=== PATIENT | female | born 1960 | race Caucasian/White ===

== ENCOUNTER 2019-12-10 13:02 | Emergency (ER) | payer MEDICAID, SELFPAY | END 2019-12-10 15:25 | disposition home or self-care (01) | LOC: ER 12-20 06:44 | PROVIDERS: Emergency Provider Family Medicine; Family Provider Nurse Practitioner Family; PCP Orthopaedic Surgery | DX: Z76.89 Persons encountering health services in other specified circumstances (principal) ==

== ENCOUNTER 2019-12-10 13:02 | Emergency (ER) | payer MEDICAID, SELFPAY ==
[2019-12-10 13:04] VITALS: BP 129/91; PULSE 94; RESP 24; TEMP 36.5; O2SAT 98; BMI 40.6
[2019-12-10 13:16] VITALS: BP 126/72; PULSE 99; RESP 24; O2SAT 96
--- NOTE | 2019-12-10 13:18 | PC.NURSE ---
Patient reports that she woke up this morning with shortness of breath. Patient states she coughed and she felt a pop in her back. Patient reports that the SOB got better after the pop. Patient states that she has a history of COPD and wears 3.5 L of O2 at home.
--- NOTE | 2019-12-10 13:57 | ED_ITS ---
Entered by Sue Dyer, acting as scribe for Dec 10, 2019 13:02 HPI - SOB/Dyspnea General: Chief Complaint: Shortness of Breath/Dyspnea Stated Complaint: SOB Time Seen by Provider: 12/10/19 13:55 Source: patient, EMS and RN notes reviewed Mode of arrival: EMS Limitations: no limitations History of Present Illness: HPI Narrative: 59 yo female presents to ED with complaints of shortness of breath. She said she coughed and felt a pop in her rib area. She said it hurts with movement and coughing. This happened earlier today. She denies any fall or injuries. Pain is worse on deep inspiration and coughing. MD elicited complaint: shortness of breath, cough and pain with inspiration Onset (ago): minute(s) (just prior to arrival) Context: recent illness Timing: intermittent Severity: moderate Exacerbating factors: movement and coughing Relieving factors: rest Associated symptoms: Reports abdominal pain and chest pain; Deny fever(s), palpitations, polydipsia or polyuria Treatment prior to arrival: none Related Data: Home oxygen amount: 3 liters (3.5) Review of Systems General: Reports: 10 or more systems reviewed and unremarkable except in HPI and below Const: Denies: fever, chills or body aches Eyes: Reports: blind spots; Denies: change in vision or blurry vision ENMT: Denies: throat pain, enlarged tonsils, painful swallowing, hoarseness, mouth pain or swelling of lips/tongue Card: Reports: chest pain; Denies: palpitations, irregular heart rhythm, edema or swelling of feet/ankles Resp: Denies: shortness of breath, productive cough or non-productive cough GI: Reports: abdominal pain : Denies: flank pain, difficulty urinating, painful urination, urinary frequency, urinary urgency or urinary hesitancy Musc: Denies: neck pain, back pain or extremity swelling Skin/Breast: Denies: rash, itching or redness Neuro: Denies: headache, numbness in extremities or weakness in extremities Endo: Denies: excessive urination, excessive thirst or tired all the time PFS ED PFSH: Social History Smoking and tobacco status: current every day smoker Physical Exam Const: COMMON NORMALS: no apparent distress, average body habitus, oriented x3, no limitations, healthy appearing, alert and well nourished HENMT: COMMON NORMALS: normocephalic, head/scalp atraumatic and moist oral mucous membranes HEAD & SCALP: normocephalic and atraumatic Eye: COMMON NORMALS: PERRL, EOMs intact bilaterally, conjunctivae normal and no scleral icterus CONJUNCTIVA: Yes conjunctivae normal PUPIL: Yes PERRL Neck/C-Spine: COMMON NORMALS: full ROM, supple, no meningeal signs, no JVD and no carotid bruits Chest: COMMONS NORMALS: inspection of chest normal CHEST: Yes localized rib tenderness with anteroposterior compression (on the left) Resp: COMMON NORMALS: normal respiratory effort, no retractions, no use of accessory muscles, clear to auscultation bilaterally and percussion normal AUSCULTATION: clear to auscultation bilaterally and rhonchi PERCUSSION: percussion normal Cardio: COMMON NORMALS: no JVD, regular rate, regular rhythm, S1 normal heart sound, S2 normal heart sound, no gallops, no clicks, no murmurs, no rub and peripheral pulses 2+ throughout RATE: regular rate RHYTHM: regular rhythm HEART SOUNDS: S1 normal and S2 normal PERIPHERAL PULSES: pulses 2+ throughout GI: COMMON NORMALS: normal to inspection, nondistended, normoactive bowel sounds, soft to palpation, non-tender, no hepatosplenomegaly, no masses and no bruits PALPATION: Yes soft and Yes no hepatosplenomegaly : COMMON NORMALS: Yes no CVA tenderness BLADDER/KIDNEY EXAM: Yes no CVA tenderness Back/Pelvis: COMMON NORMALS: no CVA tenderness Extremity: COMMON NORMALS: normal to inspection, full ROM, normal capillary refill, no calf tenderness and no pedal edema Neuro: COMMON NORMALS: oriented x3 SENSORIUM/ORIENTATION: Yes alert MENINGEAL SIGNS: Yes no meningeal signs Skin: COMMON NORMALS: no rashes or lesions noted, no wounds, skin turgor normal, no jaundice, no petechiae and no mottling GENERAL SKIN EXAM: no rashes or lesions noted and turgor normal Course Reevaluation(s): Reevaluation #1: Discussed her x-ray findings with her. She has a left sixth rib fracture. Pain is slightly better following the Toradol shot. We will discharge her home on hydrocodone she says she is taken that before with no allergic reactions. Time: 15:06 Vital Signs: Vital signs: Vital Signs Temperature 97.7 F 12/10/19 13:04 Pulse Rate 99 12/10/19 13:16 Respiratory Rate 24 H 12/10/19 13:16 Blood Pressure 126/72 12/10/19 13:16 Pulse Oximetry 96 12/10/19 13:16 MDM - SOB/Dyspnea MDM Narrative: Medical decision making narrative: Patient with a left sixth rib fracture following a coughing spell. The rib fracture is uncomplicated. She is discharged home with a prescription for hydrocodone. Medical Records: Attestation: I reviewed the patient's medical records. Imaging Data^: Other Xray: Radiologist's impression: [place] [address] XRay Report Signed Patient: Marlene Covington #: [id number] : 1960Acct#:[id number] Age/Sex: 59 / FADM Date: 12/10/19 [facility] Dr: Ordering Provider/Ordering MD: Truong Conte [place], [facility] of Service: 12/10/19 Procedure(s): XR ribs LT mn 3V w CXR1V 15925 Accession Number(s): [id number] Report Number: [id number] WS: [id number] XR ribs LT mn 3V w CXR1V 15057 REASON FOR EXAM: rib pain FINDINGS: A nondisplaced fracture through the angle of the sixth rib. No pneumothorax or pleural effusion. There is no congestion of either lung field. XR/XR ribs LT mn 3V w CXR1V 13305 IMPRESSION: Nondisplaced fracture of the sixth rib at its angle. Dictated By:Stephan Reed DO Signed By:Stephan Reed DOSigned Date/Time:12/10/19 1203 Discharge Plan Discharge Patient Disposition: Home, Self-Care Clinical Impression: Closed rib fracture Qualifiers: Encounter type: initial encounter Rib fracture type: single rib Laterality: left Qualified Code(s): S22.32XA - Fracture of one rib, left side, initial encounter for closed fracture Condition: Stable Prescriptions: New hydrocodone-acetaminophen 5-325 mg tablet 1 tab PO Q8H PRN (Reason: rib fracture) Qty: 30 RF: 0 Continued Wixela Inhub 250-50 mcg/dose blister with device 1 inh INHALATION BID RF: 0 ipratropium-albuterol 0.5 mg-3 mg(2.5 mg base)/3 mL solution for nebulization 3 ml INHALATION QID PRN (Reason: Shortness Of Breath) RF: 0 albuterol sulfate 2.5 mg /3 mL (0.083 %) solution for nebulization 2.5 mg inhalation Q2H PRN (Reason: Shortness Of Breath) RF: 0 prednisone 5 mg tablet 5 - 10 mg PO DAILY RF: 0 cyanocobalamin (vitamin B-12) 1,000 mcg/mL solution 1,000 mcg IM Q30D RF: 0 ibuprofen 200 mg Tablet 800 mg PO Q4H PRN (Reason: Pain) RF: 0 omeprazole 20 mg capsule,delayed release(DR/EC) 20 mg PO DAILY RF: 0 lorazepam 1 mg tablet See Rx Instructions .ROUTE .COMPLEX RF: 0 ProAir HFA 90 mcg/actuation HFA aerosol inhaler 2 puff INHALATION QID PRN (Reason: Shortness Of Breath) RF: 0 Spiriva Respimat 2.5 mcg/actuation mist 2 puff INHALATION DAILY RF: 0 Mucinex 600 mg tablet extended release 12hr 600 mg PO BID PRN (Reason: Congestion) RF: 0 Combivent Respimat 20-100 mcg/actuation mist 1 puff INHALATION QID PRN (Reason: UNKNOWN) RF: 0 Discharge Orders: Discharge Order (Routine); Ordered 12/10/19 Ordered By: Truong Conte Referrals: Raul Clark MD [Primary Care Provider] - Ted Ewing APN [Family Provider] - 7-10 days Patient Instructions: Rib Fracture (ED) Activity Restrictions/Additional Instructions: Return for any new or worsening symptoms. Follow-up with your primary care provider within 1 week. Take the pain medication as needed for pain. Coding Level of Care Code ED Almond Roaster for Chg Fwd Exam Comprehensive The documentation recorded by the Gomez bland Valerie R accurately reflects the service I personally performed and the decisions made by Dg fisher Adegoke I, MD, [facility] Dec 10, 2019 13:02
--- NOTE | 2019-12-10 14:04 | XR_ITS ---
WS: [id number] XR ribs LT mn 3V w CXR1V [id number] REASON FOR EXAM: rib pain FINDINGS: A nondisplaced fracture through the angle of the sixth rib. No pneumothorax or pleural effusion. There is no congestion of either lung field. XR/XR ribs LT mn 3V w CXR1V 29728 IMPRESSION: Nondisplaced fracture of the sixth rib at its angle.
[2019-12-10] MEDS: ketorolac 60 mg/2 mL INJ IM (14:12)
[2019-12-10] MEDS: orphenadrine 30 mg/mL Inj 2 mL 60 MG IM (14:13)
[2019-12-10 15:14] VITALS: BP 139/87; PULSE 79; RESP 18; O2SAT 97
[2019-12-10 15:24] VITALS: BP 137/94; PULSE 89; RESP 20; O2SAT 92
== END 2019-12-10 15:25 | disposition home or self-care (01) ==
PROVIDERS: Emergency Provider Family Medicine; Family Provider Nurse Practitioner Family; PCP Orthopaedic Surgery
DX: S22.32XA Fracture of one rib, left side, initial encounter for closed fracture (principal); F17.200 Nicotine dependence, unspecified, uncomplicated
CPT/HCPCS: 71101; 96372; 99281; 99282; 99283; J1885; J2360

== ENCOUNTER 2019-12-18 18:00 | Inpatient (IN) | payer MEDICAID, SELFPAY ==
[2019-12-18 18:05] VITALS: BP 160/89; PULSE 92; RESP 21; TEMP 36.6; O2SAT 93; BMI 42.7
--- NOTE | 2019-12-18 18:37 | ED_ITS ---
Entered by Valery Cannon, acting as scribe for Truong Conte MD, [facility] [place] Dec 18, 2019 18:00 HPI - SOB/Dyspnea General: Chief Complaint: Shortness of Breath/Dyspnea Stated Complaint: COPD/SOB/WHEEZING Time Seen by Provider: 12/18/19 18:17 Source: patient Mode of arrival: EMS Limitations: no limitations History of Present Illness: HPI Narrative: 59 yo Female presents to ED with complaint of shortness of breath. Pt states that when she gets up her oxygen saturations drop down to 80 even with her oxygen being on high. Pt states that this has been going on for 3 days. MD elicited complaint: shortness of breath Pertinent past history: COPD and pneumonia Onset (ago): day(s) (3) Context: recent illness Timing: progressively worsening Severity: moderate Exacerbating factors: exertion Relieving factors: nothing Known history of: COPD Associated symptoms: Deny abdominal pain, chest pain, fever(s), nausea, palpitations, polydipsia, polyuria or vomiting Treatment prior to arrival: oxygen and bronchodilator Review of Systems General: Reports: 10 or more systems reviewed and unremarkable except in HPI and below Const: Denies: fever, chills or body aches Eyes: Denies: change in vision or blurry vision ENMT: Denies: throat pain, enlarged tonsils, painful swallowing, hoarseness, mouth pain or swelling of lips/tongue Card: Denies: chest pain, palpitations, irregular heart rhythm, edema or swelling of feet/ankles Resp: Reports: shortness of breath; Denies: productive cough or non-productive cough GI: Denies: abdominal pain, nausea or vomiting : Denies: flank pain, difficulty urinating, painful urination, urinary frequency, urinary urgency or urinary hesitancy Musc: Denies: neck pain, back pain or extremity swelling Skin/Breast: Denies: rash, itching or redness Neuro: Denies: headache, numbness in extremities or weakness in extremities Endo: Denies: excessive urination, excessive thirst or tired all the time [facility] ED PFSH: Medical History (Updated 12/18/19 @ 23:35 by Truong Conte MD, [facility] [place]) COPD (chronic obstructive pulmonary disease) Social History Smoking and tobacco status: current every day smoker Physical Exam Const: COMMON NORMALS: no apparent distress, average body habitus, oriented x3, no limitations, healthy appearing, alert and well nourished HENMT: COMMON NORMALS: normocephalic, head/scalp atraumatic and moist oral mucous membranes HEAD & SCALP: normocephalic and atraumatic Eye: COMMON NORMALS: PERRL, EOMs intact bilaterally, conjunctivae normal and no scleral icterus CONJUNCTIVA: Yes conjunctivae normal PUPIL: Yes PERRL Neck/C-Spine: COMMON NORMALS: full ROM, supple, no meningeal signs, no JVD and no carotid bruits Chest: COMMONS NORMALS: inspection of chest normal and palpation of chest normal Resp: COMMON NORMALS: normal respiratory effort, no retractions, no use of accessory muscles and percussion normal; negative for clear to auscultation bilaterally AUSCULTATION: not clear to auscultation bilaterally and wheezes throughout PERCUSSION: percussion normal Cardio: COMMON NORMALS: no JVD, regular rate, regular rhythm, S1 normal heart sound, S2 normal heart sound, no gallops, no clicks, no murmurs, no rub and peripheral pulses 2+ throughout RATE: regular rate RHYTHM: regular rhythm HEART SOUNDS: S1 normal and S2 normal PERIPHERAL PULSES: pulses 2+ throughout GI: COMMON NORMALS: normal to inspection, nondistended, normoactive bowel sounds, soft to palpation, non-tender, no hepatosplenomegaly, no masses and no bruits PALPATION: Yes soft and Yes no hepatosplenomegaly : COMMON NORMALS: Yes no CVA tenderness BLADDER/KIDNEY EXAM: Yes no CVA tenderness Back/Pelvis: COMMON NORMALS: no CVA tenderness Extremity: COMMON NORMALS: normal to inspection, full ROM, normal capillary refill, no calf tenderness and no pedal edema Neuro: COMMON NORMALS: oriented x3 SENSORIUM/ORIENTATION: Yes alert MENINGEAL SIGNS: Yes no meningeal signs Skin: COMMON NORMALS: no rashes or lesions noted, no wounds, skin turgor normal, no jaundice, no petechiae and no mottling GENERAL SKIN EXAM: no rashes or lesions noted and turgor normal Course Consultations: Consultation #1: Dr. Zaldivar, hospitalist. She kindly accepted the patient to her service. Vital Signs: Vital signs: Vital Signs Temperature 97.8 F 12/18/19 18:05 Pulse Rate 87 12/18/19 21:01 Respiratory Rate 18 12/18/19 21:01 Blood Pressure 143/66 12/18/19 21:01 Pulse Oximetry 91 12/18/19 21:01 MDM - SOB/Dyspnea MDM Narrative: Medical decision making narrative: 59-year-old female patient who presents to the emergency department with shortness of breath and desaturation with any activity. Of note, she was recently diagnosed with a rib fracture following a violent coughing spell a few days ago. In the emergency department evaluation showed she was positive for influenza, chest x-ray also shows pneumonia. Because she has COPD and chronic respiratory failure on home oxygen with the added influenza and pneumonia she is admitted to the hospital for further evaluation and management. Medical Records: Attestation: I reviewed the patient's medical records. Lab Data: Attestation: I reviewed the patient's lab results. Labs: Lab Results 12/18/19 12/18/19 12/18/19 Range/Units 19:02 19:02 19:25 WBC 9.3 (4.0-10.0) 10^3/ uL RBC 4.26 (4.1-5.3) 10^6/u L Hgb 12.0 (11.5-15.3) g/dL Hct 39.9 (37.0-47.0) % MCV 93.7 (81-99) fL MCH 28.2 (28.0-34.0) pg MCHC 30.1 (30.0-36.0) g/dL RDW 14.6 (12.1-15.1) % Plt Count 357 (130-400) 10^3/c mm MPV 9.0 (7.4-10.4) fL Neut % (Auto) 87.1 % Lymph % (Auto) 5.2 % Bulloch % (Auto) 6.1 % Eos % (Auto) 0.1 % Baso % (Auto) 0.2 % Neut # (Auto) 8.1 H (1.8-7.7) 10^3/u L Lymph # (Auto) 0.5 L (0.8-4.8) 10^3/u L Bulloch # (Auto) 0.6 (0.2-0.9) 10^3/u L Eos # (Auto) 0.0 (0.0-0.8) 10^3/u L Baso # (Auto) 0.0 (0.0-0.1) 10^3/u L Nucleated RBC % (a uto) 0 % Nucleated RBCs # 0.0 /100WBC Sodium 138 (136-145) mmol/L Potassium 3.9 (3.5-5.1) mmol/L Chloride 93 L (98-107) mmol/L Carbon Dioxide 31 H (22-29) mmol/L Anion Gap 17.9 (5-19) BUN 8 (6-20) mg/dL Creatinine 0.7 (0.5-0.9) mg/dL GFR Calculation 85.6 L (90-130) mL/min Glucose 121 H (65-115) mg/dL Calcium 9.5 (8.5-10.5) mg/dL Total Bilirubin 0.2 (0.15-1.2) mg/dL AST 30 (0-32) U/L ALT 32 (0-33) U/L Alkaline Phosphata se 88 (35-105) IU/L NT-Pro-B Natriuret Pep 198 H (0-125) pg/mL Total Protein 6.9 (6.6-8.7) g/dL Albumin 4.1 (3.5-5.2) g/dL Globulin 2.8 (1.3-4.6) g/dL Influenza Type A A g Negative (Negative) POC Influenza B Ag Positive H (Negative) Imaging Data^: CXR: Radiologist's impression: [place] [address] XRay Report Signed Patient: Marlene Covington RUngianni #: [id number] : 1960Acct#:[id number] Age/Sex: 59 / FADM Date: 12/18/19 Loc: [facility]/Bed: Attending Dr: Ordering Provider/Ordering MD: Truong Cotne MD, [facility] [place] Date of Service: 12/18/19 Procedure(s): XR chest 2V* [id number] Accession Number(s): [id number] Report Number: [id number] PROCEDURE INFORMATION: Exam: XR Chest, 2 Views Exam date and time: 12/18/2019 7:30 PM Age: 59 years old Clinical indication: Shortness of breath TECHNIQUE: Imaging protocol: XR of the chest Views: 2 views. COMPARISON: CR XR ribs LT mn 3V w CXR1V [id number] 12/10/2019 2:38 PM FINDINGS: Lungs: There is diffuse interstitial prominence compatible with interstitial fibrosis. Nonspecific bibasilar consolidation is present, consistent with atelectasis, edema, or pneumonia. Increasing density medial right lung/right middle lobe is noted compatible with progressive pneumonitis/volume loss. Pleural space: Unremarkable. No pleural effusion. No pneumothorax. Heart/Mediastinum: The heart is enlarged. Bones/joints: Osteopenia and moderate degenerative changes in the spine are noted. XR/XR chest 2V* [id number] IMPRESSION: 1. Nonspecific bibasilar consolidation is present, consistent with atelectasis, edema, or pneumonia. 2. Increasing density medial right lung/right middle lobe is noted compatible with progressive pneumonitis/volume loss. Dictated By:Margarette Latif Signed By:Prisca Latif Date/Time:12/18/192052 DD/ 51 Discharge Plan Discharge Patient Disposition: Admitted As Inpatient Clinical Impression: Influenza B, Pneumonia, Left rib fracture, COPD (chronic obstructive pulmonary disease) Condition: Stable Prescriptions: No Action fluticasone propion-salmeterol [Wixela Inhub] 250-50 mcg/dose blister with device 1 inh INHALATION BID RF: 0 ipratropium-albuterol 0.5 mg-3 mg(2.5 mg base)/3 mL solution for nebulization 3 ml INHALATION QID PRN (Reason: Shortness Of Breath) RF: 0 albuterol sulfate 2.5 mg /3 mL (0.083 %) solution for nebulization 2.5 mg inhalation Q2H PRN (Reason: Shortness Of Breath) RF: 0 prednisone 5 mg tablet 5 - 10 mg PO DAILY RF: 0 cyanocobalamin (vitamin B-12) 1,000 mcg/mL solution 1,000 mcg IM Q30D RF: 0 ibuprofen 200 mg Tablet 800 mg PO Q4H PRN (Reason: Pain) RF: 0 omeprazole 20 mg capsule,delayed release(DR/EC) 20 mg PO DAILY RF: 0 lorazepam 1 mg tablet See Rx Instructions .ROUTE .COMPLEX RF: 0 albuterol sulfate [ProAir HFA] 90 mcg/actuation HFA aerosol inhaler 2 puff INHALATION QID PRN (Reason: Shortness Of Breath) RF: 0 Spiriva Respimat 2.5 mcg/actuation mist 2 puff INHALATION DAILY RF: 0 guaifenesin [Mucinex] 600 mg tablet extended release 12hr 600 mg PO BID PRN (Reason: Congestion) RF: 0 Combivent Respimat 20-100 mcg/actuation mist 1 puff INHALATION QID PRN (Reason: UNKNOWN) RF: 0 hydrocodone-acetaminophen 5-325 mg tablet 1 tab PO Q8H PRN (Reason: rib fracture) Qty: 30 RF: 0 furosemide 20 mg Tablet 20 mg PO DAILY RF: 0 Referrals: Raul Clark MD [Primary Care Provider] - Ted Ewing, COMMUNITY NURSE [Family Provider] - Coding Level of Care Code ED [employer] Team Leader for Chg Fwd Exam Comprehensive The documentation recorded by the Kassandra bland Carmen, accurately reflects the service I personally performed and the decisions made by Dg fisher Adegoke I, MD, [facility] [place] Dec 18, 2019 18:00
--- NOTE | 2019-12-18 18:53 | XRR_ITS ---
PROCEDURE INFORMATION: Exam: XR Chest, 2 Views Exam date and time: 12/18/2019 7:30 PM Age: 59 years old Clinical indication: Shortness of breath TECHNIQUE: Imaging protocol: XR of the chest Views: 2 views. COMPARISON: CR XR ribs LT mn 3V w CXR1V 97053 12/10/2019 2:38 PM FINDINGS: Lungs: There is diffuse interstitial prominence compatible with interstitial fibrosis. Nonspecific bibasilar consolidation is present, consistent with atelectasis, edema, or pneumonia. Increasing density medial right lung/right middle lobe is noted compatible with progressive pneumonitis/volume loss. Pleural space: Unremarkable. No pleural effusion. No pneumothorax. Heart/Mediastinum: The heart is enlarged. Bones/joints: Osteopenia and moderate degenerative changes in the spine are noted. XR/XR chest 2V* [id number] IMPRESSION: 1. Nonspecific bibasilar consolidation is present, consistent with atelectasis, edema, or pneumonia. 2. Increasing density medial right lung/right middle lobe is noted compatible with progressive pneumonitis/volume loss.
[2019-12-18 19:08] LABS: Basophils % 0.2 %; Eosinophils % 0.1 %; Hematocrit 39.9 % (37.0-47.0); Lymphocytes # 0.5 10^3/uL (0.8-4.8); Lymphocytes % 5.2 %; Mean Corpuscular HGB Conc 30.1 g/dL (30.0-36.0); Mean Corpuscular Hemoglobin 28.2 pg (28.0-34.0); Mean Corpuscular Volume 93.7 fL (81-99); Monocytes # 0.6 10^3/uL (0.2-0.9); Monocytes % 6.1 %; Neutrophils # 8.1 10^3/uL (1.8-7.7); Neutrophils % 87.1 %; Nucleated Red Blood Cells % 0 %; Platelet Count 357 10^3/cmm (130-400); Red Blood Count 4.26 10^6/uL (4.1-5.3); Red Cell Distribution Width 14.6 % (12.1-15.1); White Blood Count 9.3 10^3/uL (4.0-10.0)
[2019-12-18 19:33] VITALS: PULSE 94; RESP 18; O2SAT 92
[2019-12-18] MEDS: ipratropium-albuterol 3 mL Neb INHALATION (19:33)
[2019-12-18 19:34] LABS: Alanine Aminotransferase 32 U/L (0-33); Albumin Level 4.1 g/dL (3.5-5.2); Alkaline Phosphatase 88 IU/L (35-105); Anion Gap 17.9 (5-19); Aspartate Amino Transferase 30 U/L (0-32); Blood Urea Nitrogen 8 mg/dL (6-20); Calcium 9.5 mg/dL (8.5-10.5); Carbon Dioxide 31 mmol/L (22-29); Chloride 93 mmol/L (98-107); Globulin 2.8 g/dL (1.3-4.6); Glomerular Filtration Rate 85.6 mL/min (90-130); Glucose 121 mg/dL (65-115); NT Pro B Type Natriuretic Pept 198 pg/mL (0-125); Potassium 3.9 mmol/L (3.5-5.1); Sodium 138 mmol/L (136-145); Total Bilirubin 0.2 mg/dL (0.15-1.2); Total Protein 6.9 g/dL (6.6-8.7)
[2019-12-18 20:21] LABS: Influenza A by IFA Negative (Negative)
[2019-12-18 20:22] LABS: Influenza B by IFA Positive (Negative)
[2019-12-18] MEDS: oseltamivir phosphate 75 mg Capsule PO (20:40)
[2019-12-18 21:01] VITALS: BP 143/66; PULSE 87; RESP 18; O2SAT 91
[2019-12-18] MEDS: cefTRIAXone 1,000 MG in sodium chloride 0.9% (plus) 50 ML 100 MG IV (21:13)
--- NOTE | 2019-12-18 23:18 | PM.HP ---
Providers/Chief Complaint Admitting Physician: Tonya Zaldivar MD Primary Care Provider: Raul Clark MD Chief Complaint: COPD/SOB/WHEEZING History of Present Illness Marlene Covington is a 59 year old female who presented to the emergency room with chief complaint of her oxygen being low. She is not felt well for a week or so. She says that she normally only wears oxygen 3-1/2 L at night but for the last week or so every time she gets up and walks around she has been more acutely short of breath. She has a pulse oximeter at home and reports that her oxygen levels have dropped down into the low 80s just getting up to walk to the bathroom. She is been wearing her oxygen during the day. She saw Martina Jean and was given a shot of steroids, steroid taper as well as some Levaquin. She has been taking that. She actually thinks her cough is not near as much as it normally is but she is also not getting as much up. She had 1 particular episode of coughing last week in which she had acute pain in her chest. She was found to have a left sixth acute rib fracture. She was given some pain medications for that. She reports a dry sore throat, intermittent headaches and dizziness. She has not had any episodes of syncope or falls. She is had a little bit of a runny nose. No nausea, vomiting or diarrhea. Her granddaughter was sick a couple of weeks ago although she is not sure if she had specific flu. Patient has continued to have some chest discomfort related to the rib fracture and just not felt well. She is been more tired. She came into the emergency room because of the persistent need to wear her oxygen [id number]. In the emergency room on room air oxygen saturations were as low as into the mid 80s. She was found to have influenza B positivity as well as evidence of pneumonia on chest x-ray. She received some antibiotics and breathing treatments. She is being admitted for further care. Patient is scared to go home because of the increased difficulty breathing that she has been having with ambulating even short distances. Review of Systems Const: Reports: change in weight (Had about 10 pound weight gain which she attributes to trying to quit smoking); Denies: fever or chills Eyes: Denies: change in vision ENMT: Reports: throat pain, dry mouth and nasal congestion; Denies: oral sores/lesions or tinnitus Card: Reports: chest pain (Related to left-sided rib fracture, only with deep breaths); Denies: palpitations or edema Resp: Reports: shortness of breath, productive cough, non-productive cough and wheezing; Denies: coughing up blood GI: Denies: abdominal pain, nausea, vomiting, diarrhea, constipation or blood in stool : Denies: difficulty urinating or urinary frequency Musc: Reports: other (Always has some degree of lower extremity edema); Denies: joint swelling, redness or joint warmth Skin/Breast: Denies: rash or sores Neuro: Reports: headache; Denies: numbness in extremities or weakness in extremities Psych: Reports: anxiety; Denies: depression Thierno/Lymph: Denies: easy bruising or easy bleeding Medications/Allergies Home Medications Medication Instructions Recorded Confirmed Last Taken Type furosemide 20 mg PO DAILY 12/18/19 12/18/19 12/18/19 History Allergies Allergy/AdvReac Type Severity Reaction Status Date / Time banana Allergy ALGY-Hives Verified 12/10/19 13:04 codeine Allergy ADR-Cramping Verified 12/10/19 13:04 of the Muscles naproxen [From Aleve] Allergy ALGY-Hives Verified 12/10/19 13:04 Additional Medication Information Additional Medication Information: Home Medications Medication Instructions Recorded Confirmed Type Combivent Respimat 1 puff INHALATION QID PRN 12/10/19 12/18/19 History Spiriva Respimat 2 puff INHALATION DAILY 12/10/19 12/18/19 History albuterol sulfate 2.5 mg INHALATION Q2H PRN 12/10/19 12/18/19 History albuterol sulfate [ProAir HFA] 2 puff INHALATION QID PRN 12/10/19 12/18/19 History cyanocobalamin (vitamin B-12) 1,000 mcg IM Q30D 12/10/19 12/18/19 History fluticasone propion-salmeterol 1 inh INHALATION BID 12/10/19 12/18/19 History [Wixela Inhub] guaifenesin [Mucinex] 600 mg PO BID PRN 12/10/19 12/18/19 History ibuprofen 800 mg PO Q4H PRN 12/10/19 12/18/19 History ipratropium-albuterol 3 ml INHALATION QID PRN 12/10/19 12/18/19 History lorazepam See Rx Instructions .ROUTE .COMPLEX 12/10/19 12/18/19 History omeprazole 20 mg PO DAILY 12/10/19 12/18/19 History prednisone 5 - 10 mg PO DAILY 12/10/19 12/18/19 History furosemide 20 mg PO DAILY 12/18/19 12/18/19 History PFSH Acute PFSH: Medical History (Updated 12/19/19 @ 02:53 by Tonya Zaldivar MD) Anxiety COPD (chronic obstructive pulmonary disease) Has oxygen 3.5 L at night and currently on daily steroids also GERD (gastroesophageal reflux disease) Surgical History (Updated 12/18/19 @ 23:54 by Tonya Zaldivar MD) History of History of cholecystectomy History of tubal ligation Family History (Updated 12/19/19 @ 00:14 by Tonya Zaldivar MD) Sister , Age 50 Cancer Breast; rare kind per pt Mother , Age 50 Cancer Kidney Social History (Updated 12/19/19 @ 00:12 by Tonya Zaldivar MD) Smoking and tobacco status: current every day smoker cigarettes Number of cigarettes per day: 6-10 Alcohol intake: never Substance/Drug Use: never Household members: significant other Supplemental PFSH Information: Denies any history of coronary artery disease, hypertension, hyperlipidemia, diabetes, kidney disease Vitals/I&O/Wt Last Vital Signs Temp 97.8 F 12/18/19 18:05 Pulse 87 12/18/19 21:01 Resp 18 12/18/19 21:01 BP 143/66 12/18/19 21:01 Pulse Ox 91 12/18/19 21:01 Weight last 48 hrs Weight 106.141 kg Physical Exam Const: COMMON NORMALS: oriented x3 and alert HENMT: HEAD & SCALP: normocephalic and atraumatic Eye: COMMON NORMALS: PERRL and EOMs intact bilaterally Neck/C-Spine: COMMON NORMALS: supple Resp: EFFORT & INSPECTION: Yes able to speak in complete sentences, Yes pursed lip breathing and No retractions AUSCULTATION: rhonchi left lower and wheezes expiratory wheezes, inspiratory wheezes and throughout Cardio: COMMON NORMALS: regular rate, no gallops, no murmurs and no rub GI: COMMON NORMALS: soft to palpation and non-tender AUSCULTATION: Yes normoactive bowel sounds Extremity: COMMON NORMALS: no calf tenderness GENERAL: Yes edema (2+) Neuro: COMMON NORMALS: moves all extremities and no sensory deficits noted Psych: COMMON NORMALS: cooperative Skin: NARRATIVE SKIN EXAM: chronic stasis changes mild lower extremities. Some bruising related to lab draws lately. Data : 12/18/19 19:02 12/18/19 19:02 Other Labs: Laboratory Tests 12/18/19 12/18/19 19:02 19:25 Total Bilirubin 0.2 AST 30 ALT 32 Alkaline Phosphatase 88 NT-Pro-B Natriuret Pep 198 H Albumin 4.1 Influenza Type A Ag Negative POC Influenza B Ag Positive H CXR: Radiologist's impression: FINDINGS: Lungs: There is diffuse interstitial prominence compatible with interstitial fibrosis. Nonspecific bibasilar consolidation is present, consistent with atelectasis, edema, or pneumonia. Increasing density medial right lung/right middle lobe is noted compatible with progressive pneumonitis/volume loss. Pleural space: Unremarkable. No pleural effusion. No pneumothorax. Heart/Mediastinum: The heart is enlarged. Bones/joints: Osteopenia and moderate degenerative changes in the spine are noted. XR/XR chest 2V* [id number] IMPRESSION: 1. Nonspecific bibasilar consolidation is present, consistent with atelectasis, edema, or pneumonia. 2. Increasing density medial right lung/right middle lobe is noted compatible with progressive pneumonitis/volume loss. A&P Assessment and plan (1) Influenza B: With minimal symptoms, identified in the emergency room Status: Acute Code(s): J10.1 - Influenza due to other identified influenza virus with other respiratory manifestations (2) Pneumonia: Presumptive diagnosis on admission. She has some opacities in the bases right more than left. Not convinced is not atelectasis. Lack of fever, elevation in white count or other findings suggestive of an acute infection would go against this. BNP was only minimally elevated. Status: Acute Qualifiers: Laterality: right Lung location: lower lobe of lung Pneumonia type: due to unspecified organism Qualified Code(s): J18.9 - Pneumonia, unspecified organism Code(s): J18.9 - Pneumonia, unspecified organism (3) Left rib fracture: Subacute, I do think it is probably contributing some due to difficulties taking in deep breaths due to pain. She says that she can feel the fracture on the left when she tries to take in a deep breath. Status: Acute Qualifiers: Encounter type: subsequent encounter Fracture healing: with routine healing Fracture type: closed Rib fracture type: single rib Qualified Code(s): S22.32XD - Fracture of one rib, left side, subsequent encounter for fracture with routine healing Code(s): S22.32XA - Fracture of one rib, left side, initial encounter for closed fracture (4) COPD (chronic obstructive pulmonary disease): Acutely exacerbated related to above Status: Acute Qualifiers: COPD type: COPD with acute exacerbation Qualified Code(s): J44.1 - Chronic obstructive pulmonary disease with (acute) exacerbation Code(s): J44.9 - Chronic obstructive pulmonary disease, unspecified (5) Anxiety: And as needed lorazepam, primarily to help her sleep Status: Acute Code(s): F41.9 - Anxiety disorder, unspecified Additional A&P Information Inpatient admission Check ABG Depending on clinical course may consider CT/CTA imaging of the chest Tamiflu x5 days Rocephin and azithromycin Systemic steroids with increased dose from baseline Breathing treatments including inhaled steroids Incentives spirometer secondary to rib fracture Continue pain medication for rib fractures Encourage ambulation, PT eval and treat Might benefit from referral to pulmonary rehab We will give 1 dose of IV Lasix in the morning, normally on 20 mg of oral Lasix daily Try to decrease Ativan as able Chronically on oral PPI Lovenox for DVT prophylaxis Supportive care otherwise Plans discussed with patient and she was given an opportunity to ask questions Full code Attestations Medical Necessity Statement*: Anticipate stay greater than 2 midnights in patient with COPD chronically on oxygen now with flu B, likely pneumonia and acute left 6th rib fracture impacting respiratory status. Coding Level of Care Code Acute Instrument Setter for [facility] Fwd Diagnoses Influenza B J10.1 Pneumonia J18.9 Laterality: right Lung location: lower lobe of lung Pneumonia type: due to unspecified organism Left rib fracture S22.32XD Encounter type: subsequent encounter Fracture healing: with routine healing Fracture type: closed Rib fracture type: single rib COPD (chronic obstructive pulmonary disease) J44.1 COPD type: COPD with acute exacerbation Anxiety F41.9
[2019-12-18 23:52] VITALS: BP 138/68; PULSE 81; RESP 18; O2SAT 92
[2019-12-19] VITALS (15 sets, daily range): BP systolic 131–169; BP diastolic 75–90; PULSE 10–100; RESP 18–28; TEMP 36.4–37.2; O2SAT 90–99
--- NOTE | 2019-12-19 00:45 | PC.NURSE ---
Pt arrived to room via gurney from ER. Introduction of staff and aidet. Pt assisted to bed with standby assist. Admission and physical assessment done at this time. Pt noted with generalized bruising to upper extremities, audible wheezes bilaterally. Bowel sounds active in all 4 quads. Non-pitting edema noted to BLE. Pt is A/Ox4, ambulatory, states she can't walk to the bathroom even with her oxygen on 3.5L per n/c, wants a BSC. States she's hungry, that she has not eaten all day. Denies hx of diabetes.
[2019-12-19] MEDS: ipratropium-albuterol 3 mL Neb INHALATION ×4 (02:37→22:01)
[2019-12-19] MEDS: FUROsemide 10 mg/mL SDV 2mL 20 MG IVP (05:26)
[2019-12-19] MEDS: pantoprazole DR 40 mg Tablet PO (08:45)
[2019-12-19] MEDS: predniSONE 20 mg Tablet 40 MG PO (08:45)
[2019-12-19] MEDS: azithromycin 250 mg Tablet 500 MG PO (08:45)
[2019-12-19] MEDS: oseltamivir phosphate 75 mg Capsule PO ×2 (08:46→17:58)
--- NOTE | 2019-12-19 08:54 | CT_ITS ---
WS: [id number] CT CHEST WITHOUT INTRAVENOUS CONTRAST HISTORY: sob, cough, right lower lobe denisty TECHNIQUE: Contiguous 5 mm axial imaging performed on the thorax. Coronal and sagittal reformats are submitted. All CT scans at [facility] use at least one of these dose optimization techniq ues: automated exposure control; mA and/or kV adjustment per patient size (includes targeted exams wh ere dose is matched to clinical indication); or iterative reconstruction. CONTRAST: None DLP: 951.22 mGy.cm COMPARISON: 08/23/2018, 09/13/2016, 12/17/2017 and chest radiograph 12/18/2019 Lungs and central airway: Hyperexpanded lungs with changes of chronic emphysema. Patient has known gregg bcentimeter pulmonary nodules. The largest in the LEFT lower lobe measuring 6 to 7 mm. There are a fe w scattered new ill-defined opacifications in the periphery of the lower lung chavez. Progressive bro nchial thickening and bronchiectasis centered involving the RIGHT upper lobe and bronchus intermedius . Progressive bronchiectasis with bronchial wall thickening. Near complete atelectasis of the RIGHT m iddle lobe. Pleura: Normal. No pleural effusion. Heart and pericardium: Normal size heart. Increased fat along the intra-atrial septum. No pericardial effusion. Mediastinum and darien: There are a few small benign-appearing lymph nodes. Vessels: Mild atherosclerosis aorta. Ulnar artery size is normal. Scattered coronary artery calcifica tions. Chest wall and lower neck: No soft tissue masses. Upper abdomen: Prior cholecystectomy. Osseous structures: Mild increase in thoracic kyphosis. Posterior LEFT seventh rib fracture is age-in determinate but no callus formation. CT/CT chest wo con [id number] IMPRESSION: 1. Near complete atelectasis of the RIGHT middle lobe. Progressed since 2018. 2. Progressive bronchial wall thickening and bronchiectasis involving the prox imal RIGHT upper and RIGHT middle lobes. No mass identified. Bronchoscopy may be necessary to evaluate cause of the atelectasis and progressive RIGHT middle lobe atelectasis. 3. Long-term stability of subcentimeter nodules. 4. New scattered ill-defined opacifications in the lower lung chavez are proba chio postinflammatory.
[2019-12-19] MEDS: budesonide 0.5 mg/2 mL Neb INHALATION ×2 (09:31→22:01)
--- NOTE | 2019-12-19 11:15 | PM.PN ---
Subjective Subjective: Interval history: Patient states that she is not gotten any better since last night, still is short of breath with minimal exertion, no fevers, no chills, no nausea, no vomiting, no chest pain Vitals/I&O/Wt Last Vital Signs Temp 99.0 F 12/19/19 11:05 Pulse 96 12/19/19 11:05 Resp 22 H 12/19/19 11:05 BP 131/75 12/19/19 11:05 Pulse Ox 98 12/19/19 11:05 12/18/19 12/19/19 12/19/19 22:59 06:59 14:59 Intake Total 800 / 800 480 / 480 Output Total 2280 / 2280 Balance -1480 / -1480 480 / 480 Weight last 48 hrs Weight 108.136 kg Weight 108.272 kg Weight 106.141 kg Physical Exam Const: COMMON NORMALS: no apparent distress and oriented x3 HENMT: COMMON NORMALS: normocephalic HEAD & SCALP: normocephalic Neck/C-Spine: COMMON NORMALS: no JVD Resp: COMMON NORMALS: normal respiratory effort AUSCULTATION: wheezes Cardio: COMMON NORMALS: no JVD, regular rate, regular rhythm, S1 normal heart sound and S2 normal heart sound RATE: regular rate RHYTHM: regular rhythm HEART SOUNDS: S1 normal and S2 normal GI: COMMON NORMALS: normal to inspection, nondistended, normoactive bowel sounds, soft to palpation, non-tender, no hepatosplenomegaly, no masses and no bruits PALPATION: Yes soft and Yes no hepatosplenomegaly Extremity: COMMON NORMALS: normal capillary refill, no clubbing, cyanosis or edema, no calf tenderness and no pedal edema Neuro: COMMON NORMALS: oriented x3 Psych: COMMON NORMALS: mental status grossly normal Data : 12/18/19 19:02 12/18/19 19:02 A&P Assessment and plan (1) Influenza B: With minimal symptoms, identified in the emergency room Status: Acute Code(s): J10.1 - Influenza due to other identified influenza virus with other respiratory manifestations (2) Pneumonia: Presumptive diagnosis on admission. She has some opacities in the bases right more than left. Not convinced is not atelectasis. Lack of fever, elevation in white count or other findings suggestive of an acute infection would go against this. BNP was only minimally elevated. Status: Acute Qualifiers: Pneumonia type: due to unspecified organism Laterality: bilateral Lung location: lower lobe of lung Qualified Code(s): J18.9 - Pneumonia, unspecified organism Code(s): J18.9 - Pneumonia, unspecified organism (3) Left rib fracture: Subacute, I do think it is probably contributing some due to difficulties taking in deep breaths due to pain. She says that she can feel the fracture on the left when she tries to take in a deep breath. Status: Acute Qualifiers: Encounter type: subsequent encounter Rib fracture type: single rib Fracture type: closed Fracture healing: with routine healing Qualified Code(s): S22.32XD - Fracture of one rib, left side, subsequent encounter for fracture with routine healing Code(s): S22.32XA - Fracture of one rib, left side, initial encounter for closed fracture (4) COPD (chronic obstructive pulmonary disease): Acutely exacerbated related to above Continue steroids, nebulizer treatments, oxygen therapy, Tamiflu, Rocephin and azithromycin, incentive spirometer Status: Acute Qualifiers: COPD type: unspecified COPD Qualified Code(s): J44.9 - Chronic obstructive pulmonary disease, unspecified Code(s): J44.9 - Chronic obstructive pulmonary disease, unspecified (5) Anxiety: And as needed lorazepam, primarily to help her sleep Status: Acute Code(s): F41.9 - Anxiety disorder, unspecified (6) Hilar adenopathy: -Patient has peritracheal adenopathy, with near complete consolidation of right middle lobe -I discussed the case with Dr. Wong, who is agreeable to see the patient as outpatient for consideration of bronchoscopy given her underlying history of smoking and COPD and history of pulmonary nodules in the past Status: Acute Code(s): R59.0 - Localized enlarged lymph nodes Additional A&P Information Encourage ambulation, PT eval and treat Might benefit from referral to pulmonary rehab Chronically on oral PPI Lovenox for DVT prophylaxis Full code Attestations Medical Necessity Statement*: She requires continued hospitalization for influenza B, COPD exacerbation Coding Level of Care Code Acute Sheep Sorter for [facility] Diagnoses Influenza B J10.1 Pneumonia J18.9 Pneumonia type: due to unspecified organism Laterality: bilateral Lung location: lower lobe of lung Left rib fracture S22.32XD Encounter type: subsequent encounter Rib fracture type: single rib Fracture type: closed Fracture healing: with routine healing COPD (chronic obstructive pulmonary disease) J44.9 COPD type: unspecified COPD Anxiety F41.9 Hilar adenopathy R59.0
--- NOTE | 2019-12-19 15:33 | PC.RESP ---
Patient given Pulmonary Rehab/Smoking Cessation information.
[2019-12-19] MEDS: cefTRIAXone 1,000 MG in sodium chloride 0.9% (plus) 50 ML 100 MG IV (23:46)
[2019-12-20] VITALS (15 sets, daily range): BP systolic 109–152; BP diastolic 67–86; PULSE 74–89; RESP 16–22; TEMP 36.4–36.7; O2SAT 91–98
[2019-12-20] MEDS: ipratropium-albuterol 3 mL Neb INHALATION ×4 (03:37→21:25)
[2019-12-20 06:01] LABS: Basophils % 0.2 %; Eosinophils % 0.4 %; Hematocrit 39.7 % (37.0-47.0); Hemoglobin 11.6 g/dL (11.5-15.3); Lymphocytes # 1.8 10^3/uL (0.8-4.8); Mean Corpuscular HGB Conc 29.2 g/dL (30.0-36.0); Mean Corpuscular Hemoglobin 27.2 pg (28.0-34.0); Mean Corpuscular Volume 93.2 fL (81-99); Mean Platelet Volume 9.3 fL (7.4-10.4); Monocytes # 0.9 10^3/uL (0.2-0.9); Neutrophils # 5.2 10^3/uL (1.8-7.7); Neutrophils % 64.5 %; Nucleated Red Blood Cells % 0 %; Platelet Count 323 10^3/cmm (130-400); Red Blood Count 4.26 10^6/uL (4.1-5.3); Red Cell Distribution Width 14.9 % (12.1-15.1); White Blood Count 8.1 10^3/uL (4.0-10.0)
[2019-12-20 06:26] LABS: Anion Gap 13.6 (5-19); Blood Urea Nitrogen 12 mg/dL (6-20); Carbon Dioxide 36 mmol/L (22-29); Chloride 92 mmol/L (98-107); Glomerular Filtration Rate 102.3 mL/min (90-130); Glucose 104 mg/dL (65-115); Magnesium 2.3 mg/dL (1.7-2.3); Osmolality Calculated 282 mOsm/kg (285-295); Potassium 3.6 mmol/L (3.5-5.1); Sodium 138 mmol/L (136-145)
[2019-12-20] MEDS: budesonide 0.5 mg/2 mL Neb INHALATION ×2 (08:00→21:25)
[2019-12-20] MEDS: oseltamivir phosphate 75 mg Capsule PO ×2 (10:07→18:39)
[2019-12-20] MEDS: predniSONE 20 mg Tablet 40 MG PO (10:07)
[2019-12-20] MEDS: azithromycin 250 mg Tablet 500 MG PO (10:07)
[2019-12-20] MEDS: FUROsemide 20 mg Tablet PO (10:08)
[2019-12-20] MEDS: pantoprazole DR 40 mg Tablet PO (10:08)
--- NOTE | 2019-12-20 12:23 | PC.CHAP ---
Pastoral Care Encounter/Spiritual Assessment Type of Contact [] Declined car manager visit [] Patient/Family/Request visit [] Outpatient visit [] Follow-up visit [] Physician referral [] Code/Alert [x] Routine visit [] Staff referral [] Actively dying [] Patient sleeping [] Family support [] [] Out of room [] Palliative care [] [] Receiving care in room [] Pre-surgical visit [] Trauma [] Long length of stay [] ICU visit [] Other: Relational/Emotional Strength [x] Patient feels connected with others/family/visitors/staff [] Distress [] Loneliness/isolation [] Abandonment Spirituality of Patient [x] Person of Jacinta [] Attends Confucianist of their Jacinta [] Believes in Prayer [] Reads Bible or Latter Day materials [x] There are Spiritual issues to be addressed Pie Chef Interventions [x] Prayer [x] Active listening [x] Non-anxious presence [x] Spiritual/emotional support [] Crisis/trauma care [x] Spiritual counseling [] Bereavement support [] Provided bereavement packet [] Provided Bible/devotional materials [] Provided toy/stuffed animal, coloring book to patient or family member [] Provided Communion [] Anointing/[place] [] Salvation [] Completed spiritual assessment [] Other: Impact on Illness or Injury [] Angry [] Fearful [] Anxious [] Often cries [] Exhaustion [] Unable to work [] Unable to attend nondenominational [] Unable to walk/stand [] Unable to read [] Unable to drive [] Unable to eat/drink [] Unable to sleep [] Unable to be with family [] Patient intubated [x] Other: n/a Summary Time spent with patient 5 minutes
--- NOTE | 2019-12-20 13:32 | PM.PN ---
Subjective Subjective: Interval history: Patient is still quite short of breath this morning, states that her oxygen saturations dropping to the low 80s when she stands up, states that she is not getting any better Vitals/I&O/Wt Last Vital Signs Temp 97.6 F 12/20/19 12:00 Pulse 82 12/20/19 12:00 Resp 20 H 12/20/19 12:00 BP 109/67 12/20/19 12:00 Pulse Ox 96 12/20/19 12:00 12/19/19 12/20/19 12/20/19 22:59 06:59 14:59 Intake Total 60 / 1020 240 / 240 Output Total 1999 Balance -1999 / 1040 60 / -980 240 / 240 Weight last 48 hrs Weight 109.134 kg Weight 108.136 kg Weight 108.272 kg Weight 106.141 kg Physical Exam Const: COMMON NORMALS: no apparent distress and oriented x3 HENMT: COMMON NORMALS: normocephalic HEAD & SCALP: normocephalic Neck/C-Spine: COMMON NORMALS: no JVD Resp: COMMON NORMALS: normal respiratory effort AUSCULTATION: wheezes Cardio: COMMON NORMALS: no JVD, regular rate, regular rhythm, S1 normal heart sound and S2 normal heart sound RATE: regular rate RHYTHM: regular rhythm HEART SOUNDS: S1 normal and S2 normal GI: COMMON NORMALS: normal to inspection, nondistended, normoactive bowel sounds, soft to palpation, non-tender, no hepatosplenomegaly, no masses and no bruits PALPATION: Yes soft and Yes no hepatosplenomegaly Extremity: COMMON NORMALS: normal capillary refill, no clubbing, cyanosis or edema, no calf tenderness and no pedal edema Neuro: COMMON NORMALS: oriented x3 Psych: COMMON NORMALS: mental status grossly normal Data : 12/20/19 05:32 12/20/19 05:32 A&P Assessment and plan (1) Influenza B: With minimal symptoms, on Tamiflu Status: Acute Code(s): J10.1 - Influenza due to other identified influenza virus with other respiratory manifestations (2) Pneumonia: Presumptive diagnosis on admission. She has some opacities in the bases right more than left. Not convinced is not atelectasis. Lack of fever, elevation in white count or other findings suggestive of an acute infection would go against this. BNP was only minimally elevated. Continue Rocephin and azithromycin, increased dose of Solu-Medrol to 40 every 8 hours Status: Acute Qualifiers: Pneumonia type: due to unspecified organism Laterality: bilateral Lung location: lower lobe of lung Qualified Code(s): J18.9 - Pneumonia, unspecified organism Code(s): J18.9 - Pneumonia, unspecified organism (3) Left rib fracture: Subacute, I do think it is probably contributing some due to difficulties taking in deep breaths due to pain. She says that she can feel the fracture on the left when she tries to take in a deep breath. Status: Acute Qualifiers: Encounter type: subsequent encounter Rib fracture type: single rib Fracture type: closed Fracture healing: with routine healing Qualified Code(s): S22.32XD - Fracture of one rib, left side, subsequent encounter for fracture with routine healing Code(s): S22.32XA - Fracture of one rib, left side, initial encounter for closed fracture (4) COPD (chronic obstructive pulmonary disease): Acutely exacerbated related to above Continue steroids, nebulizer treatments, oxygen therapy, Tamiflu, Rocephin and azithromycin, incentive spirometer Status: Acute Qualifiers: COPD type: unspecified COPD Qualified Code(s): J44.9 - Chronic obstructive pulmonary disease, unspecified Code(s): J44.9 - Chronic obstructive pulmonary disease, unspecified (5) Anxiety: And as needed lorazepam, primarily to help her sleep Status: Acute Code(s): F41.9 - Anxiety disorder, unspecified (6) Hilar adenopathy: -Patient has peritracheal adenopathy, with near complete consolidation of right middle lobe -I discussed the case with Dr. 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
[2019-12-20] MEDS: cefTRIAXone 1,000 MG in sodium chloride 0.9% (plus) 50 ML 100 MG IV (23:43)
[2019-12-21] VITALS (12 sets, daily range): BP systolic 127–170; BP diastolic 67–94; PULSE 18–95; RESP 18–20; TEMP 36.2–36.7; O2SAT 91–97
[2019-12-21] MEDS: ipratropium-albuterol 3 mL Neb INHALATION ×4 (03:28→21:31)
[2019-12-21 06:20] LABS: Basophils % 0.1 %; Hematocrit 40.1 % (37.0-47.0); Hemoglobin 11.9 g/dL (11.5-15.3); Lymphocytes # 0.7 10^3/uL (0.8-4.8); Lymphocytes % 7.6 %; Mean Corpuscular HGB Conc 29.7 g/dL (30.0-36.0); Mean Corpuscular Hemoglobin 27.4 pg (28.0-34.0); Mean Corpuscular Volume 92.2 fL (81-99); Mean Platelet Volume 9.6 fL (7.4-10.4); Monocytes # 0.7 10^3/uL (0.2-0.9); Monocytes % 7.2 %; Neutrophils % 83.5 %; Nucleated Red Blood Cells % 0 %; Platelet Count 336 10^3/cmm (130-400); Red Blood Count 4.35 10^6/uL (4.1-5.3); Red Cell Distribution Width 14.3 % (12.1-15.1); White Blood Count 9.6 10^3/uL (4.0-10.0)
[2019-12-21 06:42] LABS: Alanine Aminotransferase 33 U/L (0-33); Albumin Level 3.6 g/dL (3.5-5.2); Alkaline Phosphatase 76 IU/L (35-105); Anion Gap 13.4 (5-19); Aspartate Amino Transferase 24 U/L (0-32); Blood Urea Nitrogen 10 mg/dL (6-20); Calcium 9.2 mg/dL (8.5-10.5); Carbon Dioxide 37 mmol/L (22-29); Chloride 92 mmol/L (98-107); Globulin 3.3 g/dL (1.3-4.6); Glomerular Filtration Rate 126.3 mL/min (90-130); Glucose 171 mg/dL (65-115); Magnesium 2.4 mg/dL (1.7-2.3); Phosphorus 3.7 mg/dL (2.5-4.5); Potassium 4.4 mmol/L (3.5-5.1); Sodium 138 mmol/L (136-145); Total Bilirubin 0.2 mg/dL (0.15-1.2); Total Protein 6.9 g/dL (6.6-8.7)
[2019-12-21] MEDS: budesonide 0.5 mg/2 mL Neb INHALATION ×2 (08:33→21:31)
[2019-12-21] MEDS: FUROsemide 20 mg Tablet PO (08:41)
[2019-12-21] MEDS: azithromycin 250 mg Tablet 500 MG PO (08:41)
[2019-12-21] MEDS: pantoprazole DR 40 mg Tablet PO (08:42)
[2019-12-21] MEDS: oseltamivir phosphate 75 mg Capsule PO ×2 (08:42→17:38)
[2019-12-21] MEDS: lanolin oint 7 gm 1 APPLIC TOPICAL (16:10)
--- NOTE | 2019-12-21 16:11 | P.PN_ITS ---
Subjective Subjective: Interval history: Patient states that she is doing much better, shortness of breath has improved, she is able to ambulate, her oxygen saturations do drop into the low 80s with ambulation, but she is doing much better, no fevers, no chills has a persistent cough Vitals/I&O/Wt Last Vital Signs Temp 97.2 F L 12/21/19 15:39 Pulse 80 12/21/19 15:39 Resp 18 12/21/19 15:39 BP 127/67 12/21/19 15:39 Pulse Ox 94 12/21/19 15:39 12/21/19 12/21/19 12/21/19 06:59 14:59 22:59 Intake Total 170 / 650 720 / 720 Output Total 475 / 975 1300 / 1300 750 / 2050 Balance -305 / -325 -580 / -580 -750 / -1330 Weight last 48 hrs Weight 106.73 kg Weight 109.134 kg Physical Exam Const: COMMON NORMALS: no apparent distress and oriented x3 HENMT: COMMON NORMALS: normocephalic HEAD & SCALP: normocephalic Neck/C-Spine: COMMON NORMALS: no JVD Resp: COMMON NORMALS: normal respiratory effort, no retractions, no use of accessory muscles and clear to auscultation bilaterally AUSCULTATION: clear to auscultation bilaterally Cardio: COMMON NORMALS: no JVD, regular rate, regular rhythm, S1 normal heart sound and S2 normal heart sound RATE: regular rate RHYTHM: regular rhythm HEART SOUNDS: S1 normal and S2 normal GI: COMMON NORMALS: normal to inspection, nondistended, normoactive bowel sounds, soft to palpation, non-tender, no hepatosplenomegaly, no masses and no bruits PALPATION: Yes soft and Yes no hepatosplenomegaly Extremity: COMMON NORMALS: normal capillary refill, no clubbing, cyanosis or edema, no calf tenderness and no pedal edema Neuro: COMMON NORMALS: oriented x3 Psych: COMMON NORMALS: mental status grossly normal Data : 12/21/19 05:47 12/21/19 05:47 Micro: Microbiology 12/20/19 15:35 MRSA Culture - Final Nose 12/20/19 18:00 Gram Stain - Final Sputum - Expectorated Sputum 12/20/19 15:40 Bacterial Antigens - Final Urine,Voided A&P Assessment and plan (1) Influenza B: With minimal symptoms, on Tamiflu Status: Acute Code(s): J10.1 - Influenza due to other identified influenza virus with other respiratory manifestations (2) Pneumonia: Presumptive diagnosis on admission. She has some opacities in the bases right more than left. Not convinced is not atelectasis. Lack of fever, elevation in white count or other findings suggestive of an acute infection would go against this. BNP was only minimally elevated. Continue Rocephin and azithromycin, increased dose of Solu-Medrol to 40 every 8 hours Status: Acute Qualifiers: Pneumonia type: due to unspecified organism Laterality: bilateral Lung location: lower lobe of lung Qualified Code(s): J18.9 - Pneumonia, unspecified organism Code(s): J18.9 - Pneumonia, unspecified organism (3) Left rib fracture: Subacute, I do think it is probably contributing some due to difficulties taking in deep breaths due to pain. She says that she can feel the fracture on the left when she tries to take in a deep breath. Status: Acute Qualifiers: Encounter type: subsequent encounter Rib fracture type: single rib Fracture type: closed Fracture healing: with routine healing Qualified Cod e(s): S22.32XD - Fracture of one rib, left side, subsequent encounter for fracture with routine healing Code(s): S22.32XA - Fracture of one rib, left side, initial encounter for closed fracture (4) COPD (chronic obstructive pulmonary disease): Acutely exacerbated related to above Continue steroids, nebulizer treatments, oxygen therapy, Tamiflu, Rocephin and azithromycin, incentive spirometer Status: Acute Qualifiers: COPD type: unspecified COPD Qualified Code(s): J44.9 - Chronic obstructive pulmonary disease, unspecified Code(s): J44.9 - Chronic obstructive pulmonary disease, unspecified (5) Anxiety: And as needed lorazepam, primarily to help her sleep Status: Acute Code(s): F41.9 - Anxiety disorder, unspecified (6) Hilar adenopathy: -Patient has peritracheal adenopathy, with near complete consolidation of right middle lobe -I discussed the case with Dr. 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
[2019-12-21] MEDS: cefTRIAXone 1,000 MG in sodium chloride 0.9% (plus) 50 ML 100 MG IV (22:59)
[2019-12-22] VITALS (15 sets, daily range): BP systolic 133–182; BP diastolic 73–98; PULSE 87–101; RESP 16–20; TEMP 36.4–37; O2SAT 90–98
[2019-12-22] MEDS: ipratropium-albuterol 3 mL Neb INHALATION ×4 (02:32→20:44)
[2019-12-22 05:20] LABS: Basophils % 0.2 %; Hematocrit 41.7 % (37.0-47.0); Hemoglobin 12.3 g/dL (11.5-15.3); Lymphocytes # 0.9 10^3/uL (0.8-4.8); Lymphocytes % 7.1 %; Mean Corpuscular HGB Conc 29.5 g/dL (30.0-36.0); Mean Corpuscular Volume 91.4 fL (81-99); Mean Platelet Volume 9.5 fL (7.4-10.4); Monocytes # 0.6 10^3/uL (0.2-0.9); Monocytes % 4.8 %; Neutrophils # 11.4 10^3/uL (1.8-7.7); Neutrophils % 86.5 %; Nucleated Red Blood Cells % 0 %; Platelet Count 373 10^3/cmm (130-400); Red Blood Count 4.56 10^6/uL (4.1-5.3); Red Cell Distribution Width 14.4 % (12.1-15.1); White Blood Count 13.2 10^3/uL (4.0-10.0)
[2019-12-22 05:46] LABS: Alanine Aminotransferase 52 U/L (0-33); Albumin Level 3.9 g/dL (3.5-5.2); Alkaline Phosphatase 79 IU/L (35-105); Anion Gap 16.4 (5-19); Aspartate Amino Transferase 34 U/L (0-32); Blood Urea Nitrogen 14 mg/dL (6-20); Calcium 9.5 mg/dL (8.5-10.5); Carbon Dioxide 34 mmol/L (22-29); Chloride 90 mmol/L (98-107); Globulin 3.2 g/dL (1.3-4.6); Glomerular Filtration Rate 102.3 mL/min (90-130); Glucose 192 mg/dL (65-115); Magnesium 2.4 mg/dL (1.7-2.3); Phosphorus 4.2 mg/dL (2.5-4.5); Potassium 4.4 mmol/L (3.5-5.1); Sodium 136 mmol/L (136-145); Total Bilirubin 0.3 mg/dL (0.15-1.2); Total Protein 7.1 g/dL (6.6-8.7)
[2019-12-22] MEDS: azithromycin 250 mg Tablet 500 MG PO (08:20)
[2019-12-22] MEDS: FUROsemide 20 mg Tablet PO (08:20)
[2019-12-22] MEDS: oseltamivir phosphate 75 mg Capsule PO ×2 (08:20→18:04)
[2019-12-22] MEDS: pantoprazole DR 40 mg Tablet PO (08:20)
[2019-12-22] MEDS: budesonide 0.5 mg/2 mL Neb INHALATION ×2 (08:33→20:45)
--- NOTE | 2019-12-22 17:53 | P.PN_ITS ---
Subjective Subjective: Interval history: This morning patient states that she is better, her lung sound better, but still has a cough, she is really worried about having a pneumonia, although she is covered with antibiotics, states that she still short of breath with exertion, but getting better, just not ready to go home today Vitals/I&O/Wt Last Vital Signs Temp 98.4 F 12/22/19 15:59 Pulse 90 12/22/19 16:10 Resp 18 12/22/19 16:10 BP 133/76 12/22/19 15:59 Pulse Ox 98 12/22/19 16:10 12/22/19 12/22/19 12/22/19 06:59 14:59 22:59 Intake Total 1520 / 1520 Output Total 800 / 800 Balance 720 / 720 Weight last 48 hrs Weight 105.262 kg Weight 106.73 kg Physical Exam Const: COMMON NORMALS: no apparent distress and oriented x3 HENMT: COMMON NORMALS: normocephalic HEAD & SCALP: normocephalic Neck/C-Spine: COMMON NORMALS: no JVD Resp: COMMON NORMALS: normal respiratory effort, no retractions, no use of accessory muscles and clear to auscultation bilaterally AUSCULTATION: clear to auscultation bilaterally Cardio: COMMON NORMALS: no JVD, regular rate, regular rhythm, S1 normal heart sound and S2 normal heart sound RATE: regular rate RHYTHM: regular rhythm HEART SOUNDS: S1 normal and S2 normal GI: COMMON NORMALS: normal to inspection, nondistended, normoactive bowel sounds, soft to palpation, non-tender, no hepatosplenomegaly, no masses and no bruits PALPATION: Yes soft and Yes no hepatosplenomegaly Extremity: COMMON NORMALS: normal capillary refill, no clubbing, cyanosis or edema, no calf tenderness and no pedal edema Neuro: COMMON NORMALS: oriented x3 Psych: COMMON NORMALS: mental status grossly normal Data : 12/22/19 04:15 12/22/19 04:15 Micro: Microbiology 12/20/19 18:00 Gram Stain - Final Sputum - Expectorated Sputum Sputum Culture - Preliminary A&P Assessment and plan (1) Influenza B: on Tamiflu Status: Acute Code(s): J10.1 - Influenza due to other identified influenza virus with other respiratory manifestations (2) Pneumonia: Presumptive diagnosis on admission. She has some opacities in the bases right more than left. Not convinced is not atelectasis. Lack of fever, elevation in white count or other findings suggestive of an acute infection would go against this. BNP was only minimally elevated. Continue Rocephin and azithromycin, increased dose of Solu-Medrol to 40 every 8 hours Status: Acute Qualifiers: Pneumonia type: due to unspecified organism Laterality: bilateral Lung location: lower lobe of lung Qualified Code(s): J18.9 - Pneumonia, unspecified organism Code(s): J18.9 - Pneumonia, unspecified organism (3) Left rib fracture: Subacute, I do think it is probably contributing some due to difficulties taking in deep breaths due to pain. She says that she can feel the fracture on the left when she tries to take in a deep breath. Status: Acute Qualifiers: Encounter type: subsequent encounter Rib fracture type: single rib Fracture type: closed Fracture healing: with routine healing Qualified Code(s): S22.32XD - Fracture of one rib, left side, subsequent encounter for fracture with routine healing Code(s): S22.32XA - Fracture of one rib, left side, initial encounter for closed fracture (4) COPD (chronic obstructive pulmonary disease): Acutely exacerbated related to above Continue steroids, nebulizer treatments, oxygen therapy, Tamiflu, Rocephin and azithromycin, incentive spirometer Status: Acute Qualifiers: COPD type: unspecified COPD Qualified Code(s): J44.9 - Chronic obstructive pulmonary disease, unspecified Code(s): J44.9 - Chronic obstructive pulmonary disease, unspecified (5) Anxiety: And as needed lorazepam, primarily to help her sleep Status: Acute Code(s): F41.9 - Anxiety disorder, unspecified (6) Hilar adenopathy: -Patient has peritracheal adenopathy, with near complete consolidation of right middle lobe -I discussed the case with Dr. 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
[2019-12-22] MEDS: guaiFENesin 600 mg Tablet PO (20:44)
[2019-12-22] MEDS: LORazepam 0.5 mg Tablet PO (20:44)
[2019-12-22] MEDS: cefTRIAXone 1,000 MG in sodium chloride 0.9% (plus) 50 ML 100 MG IV (23:39)
[2019-12-23] VITALS (14 sets, daily range): BP systolic 113–169; BP diastolic 56–95; PULSE 68–88; RESP 16–20; TEMP 36.6–37.3; O2SAT 91–97
[2019-12-23] MEDS: ipratropium-albuterol 3 mL Neb INHALATION ×4 (02:41→21:31)
[2019-12-23 05:53] LABS: Basophils % 0.2 %; Eosinophils % 0.1 %; Hematocrit 41.3 % (37.0-47.0); Hemoglobin 12.2 g/dL (11.5-15.3); Lymphocytes # 0.9 10^3/uL (0.8-4.8); Lymphocytes % 5.7 %; Mean Corpuscular HGB Conc 29.5 g/dL (30.0-36.0); Mean Corpuscular Hemoglobin 27.1 pg (28.0-34.0); Mean Corpuscular Volume 91.8 fL (81-99); Mean Platelet Volume 9.6 fL (7.4-10.4); Monocytes % 6.1 %; Neutrophils # 14.2 10^3/uL (1.8-7.7); Neutrophils % 86.4 %; Nucleated Red Blood Cells % 0 %; Platelet Count 422 10^3/cmm (130-400); Red Cell Distribution Width 14.6 % (12.1-15.1); White Blood Count 16.4 10^3/uL (4.0-10.0)
[2019-12-23 06:24] LABS: Alanine Aminotransferase 49 U/L (0-33); Alkaline Phosphatase 72 IU/L (35-105); Anion Gap 13.6 (5-19); Aspartate Amino Transferase 22 U/L (0-32); Blood Urea Nitrogen 14 mg/dL (6-20); Calcium 9.2 mg/dL (8.5-10.5); Carbon Dioxide 35 mmol/L (22-29); Chloride 91 mmol/L (98-107); Globulin 2.8 g/dL (1.3-4.6); Glomerular Filtration Rate 126.3 mL/min (90-130); Glucose 168 mg/dL (65-115); Magnesium 2.4 mg/dL (1.7-2.3); Phosphorus 4.6 mg/dL (2.5-4.5); Potassium 4.6 mmol/L (3.5-5.1); Sodium 135 mmol/L (136-145); Total Bilirubin 0.4 mg/dL (0.15-1.2); Total Protein 6.8 g/dL (6.6-8.7)
[2019-12-23] MEDS: FUROsemide 20 mg Tablet PO (08:38)
[2019-12-23] MEDS: azithromycin 250 mg Tablet 500 MG PO (08:39)
[2019-12-23] MEDS: pantoprazole DR 40 mg Tablet PO (08:39)
[2019-12-23] MEDS: oseltamivir phosphate 75 mg Capsule PO ×2 (08:39→17:30)
--- NOTE | 2019-12-23 08:47 | XRR_ITS ---
PROCEDURE INFORMATION: Exam: XR Chest, 1 View Exam date and time: 12/23/2019 11:43 AM Age: 59 years old Clinical indication: Shortness of breath; Additional info: SOB TECHNIQUE: Imaging protocol: XR of the chest Views: 1 view. COMPARISON: CR XR chest 2V* [id number] 12/18/2019 7:22 PM FINDINGS: Lungs: Mild elevation/eventration of right hemidiaphragm with some associated right lung base (right middle lobe) volume loss/atelectasis. Pleural space: Unremarkable. No pleural effusion. No pneumothorax. Heart/Mediastinum: Unremarkable. No cardiomegaly. Bones/joints: Unremarkable. XR/XR chest 1V portable [id number] IMPRESSION: Mild elevation/eventration of right hemidiaphragm with some associated right lung base (right middle lobe) volume loss/atelectasis. Appearance relatively unchanged from 12/18/2019.
[2019-12-23] MEDS: budesonide 0.5 mg/2 mL Neb INHALATION ×2 (09:54→21:31)
--- NOTE | 2019-12-23 10:31 | PM.PN ---
Subjective Subjective: Interval history: Patient is a bit concerned as she still gets short of breath with exertion, her oxygen saturations do drop with exertion, no fevers, no chills, no cough, no lightheadedness, dizziness Vitals/I&O/Wt Last Vital Signs Temp 97.8 F 12/23/19 07:53 Pulse 87 12/23/19 10:04 Resp 18 12/23/19 10:04 BP 169/95 12/23/19 07:53 Pulse Ox 95 12/23/19 10:04 12/22/19 12/23/19 12/23/19 22:59 06:59 14:59 Intake Total 840 / 2360 60 / 2420 240 / 240 Balance 840 / 1560 60 / 1620 240 / 240 Weight last 48 hrs Weight 104.326 kg Weight 105.262 kg Physical Exam Const: COMMON NORMALS: no apparent distress and oriented x3 HENMT: COMMON NORMALS: normocephalic HEAD & SCALP: normocephalic Neck/C-Spine: COMMON NORMALS: no JVD Resp: COMMON NORMALS: normal respiratory effort, no retractions, no use of accessory muscles and clear to auscultation bilaterally AUSCULTATION: clear to auscultation bilaterally Cardio: COMMON NORMALS: no JVD, regular rate, regular rhythm, S1 normal heart sound and S2 normal heart sound RATE: regular rate RHYTHM: regular rhythm HEART SOUNDS: S1 normal and S2 normal GI: COMMON NORMALS: normal to inspection, nondistended, normoactive bowel sounds, soft to palpation, non-tender, no hepatosplenomegaly, no masses and no bruits PALPATION: Yes soft and Yes no hepatosplenomegaly Extremity: COMMON NORMALS: normal capillary refill, no clubbing, cyanosis or edema, no calf tenderness and no pedal edema Neuro: COMMON NORMALS: oriented x3 Psych: COMMON NORMALS: mental status grossly normal Data : 12/23/19 05:20 12/23/19 05:20 Micro: Microbiology 12/20/19 18:00 Gram Stain - Final Sputum - Expectorated Sputum Sputum Culture - Preliminary Staphylococcus species A&P Assessment and plan (1) Influenza B: on Tamiflu Status: Acute Code(s): J10.1 - Influenza due to other identified influenza virus with other respiratory manifestations (2) Pneumonia: Presumptive diagnosis on admission. She has some opacities in the bases right more than left. Not convinced is not atelectasis. Lack of fever, elevation in white count or other findings suggestive of an acute infection would go against this. BNP was only minimally elevated. Continue Rocephin and azithromycin, increased dose of Solu-Medrol to 40 every 8 hours Patient has had a slow clinical progress, likely secondary to pneumonia and influenza B and underlying COPD, her CT scan did show atelectasis of right middle lobe, I have spoken to Dr. Wong in the past about the case, he advised to increase dose of steroids and monitor clinical progress. If patient does not improve in the next 24 hours, will speak to Dr. Wong about possibly doing a bronchoscopy Status: Acute Qualifiers: Pneumonia type: due to unspecified organism Laterality: bilateral Lung location: lower lobe of lung Qualified Code(s): J18.9 - Pneumonia, unspecified organism Code(s): J18.9 - Pneumonia, unspecified organism (3) Left rib fracture: Subacute, I do think it is probably contributing some due to difficulties taking in deep breaths due to pain. She says that she can feel the fracture on the left when she tries to take in a deep breath. Status: Acute Qualifiers: Encounter type: subsequent encounter Rib fracture type: single rib Fracture type: closed Fracture healing: with routine healing Qualified Code(s): S22.32XD - Fracture of one rib, left side, subsequent encounter for fracture with routine healing Code(s): S22.32XA - Fracture of one rib, left side, initial encounter for closed fracture (4) COPD (chronic obstructive pulmonary disease): Acutely exacerbated related to above Continue steroids, nebulizer treatments, oxygen therapy, Tamiflu, Rocephin and azithromycin, incentive spirometer Status: Acute Qualifiers: COPD type: unspecified COPD Qualified Code(s): J44.9 - Chronic obstructive pulmonary disease, unspecified Code(s): J44.9 - Chronic obstructive pulmonary disease, unspecified (5) Anxiety: And as needed lorazepam, primarily to help her sleep Status: Acute Code(s): F41.9 - Anxiety disorder, unspecified (6) Hilar adenopathy: -Patient has peritracheal adenopathy, with near complete consolidation of right middle lobe -I discussed the case with Dr. Wong, who is agreeable to see the patient as outpatient for consideration of bronchoscopy given her underlying history of smoking and COPD and history of pulmonary nodules in the past Status: Acute Code(s): R59.0 - Localized enlarged lymph nodes Additional A&P Information Encourage ambulation, PT eval and treat Might benefit from referral to pulmonary rehab Chronically on oral PPI Lovenox for DVT prophylaxis Full code Attestations Medical Necessity Statement*: Patient requires continued hospitalization, for respiratory failure Coding Level of Care Code Acute Lab Director for [facility] Fw Diagnoses Influenza B J10.1 Pneumonia J18.9 Pneumonia type: due to unspecified organism Laterality: bilateral Lung location: lower lobe of lung Left rib fracture S22.32XD Encounter type: subsequent encounter Rib fracture type: single rib Fracture type: closed Fracture healing: with routine healing COPD (chronic obstructive pulmonary disease) J44.9 COPD type: unspecified COPD Anxiety F41.9 Hilar adenopathy R59.0
[2019-12-23 13:57] LABS: Adenovirus Not Detected (Not Detected); Human Metapneumovirus Not Detected (Not Detected); Human Parainflu Virus 1 Not Detected (Not Detected); Human Parainflu Virus 2 Not Detected (Not Detected); Human Parainflu Virus 3 Not Detected (Not Detected); Human Rsv A Not Detected (Not Detected); Influenza A Not Detected (Not Detected); Influenza B Detected (Not Detected); Rhinovirus/Enterovirus Not Detected (Not Detected)
[2019-12-23] MEDS: levofloxacin-dextrose 5 % 750 MG/150 ML PREMIX 150 MG IV (17:30)
[2019-12-23] MEDS: guaiFENesin 100 mg/5 mL UDC 10 mL 200 MG PO (21:07)
[2019-12-23] MEDS: benzonatate 100 mg Capsule 200 MG PO (21:07)
[2019-12-24] VITALS (13 sets, daily range): BP systolic 107–146; BP diastolic 62–83; PULSE 83–113; RESP 16–22; TEMP 36.4–36.8; O2SAT 87–97
[2019-12-24] MEDS: ipratropium-albuterol 3 mL Neb INHALATION ×4 (02:46→21:49)
[2019-12-24 05:57] LABS: Basophils % 0.2 %; Hematocrit 41.9 % (37.0-47.0); Hemoglobin 12.4 g/dL (11.5-15.3); Lymphocytes # 0.9 10^3/uL (0.8-4.8); Lymphocytes % 6.1 %; Mean Corpuscular HGB Conc 29.6 g/dL (30.0-36.0); Mean Corpuscular Hemoglobin 27.3 pg (28.0-34.0); Mean Corpuscular Volume 92.1 fL (81-99); Mean Platelet Volume 9.4 fL (7.4-10.4); Monocytes % 6.2 %; Neutrophils # 13.2 10^3/uL (1.8-7.7); Neutrophils % 85.9 %; Nucleated Red Blood Cells % 0 %; Platelet Count 436 10^3/cmm (130-400); Red Blood Count 4.55 10^6/uL (4.1-5.3); Red Cell Distribution Width 14.6 % (12.1-15.1); White Blood Count 15.3 10^3/uL (4.0-10.0)
[2019-12-24 06:25] LABS: Alanine Aminotransferase 48 U/L (0-33); Alkaline Phosphatase 75 IU/L (35-105); Anion Gap 14.8 (5-19); Aspartate Amino Transferase 22 U/L (0-32); Blood Urea Nitrogen 19 mg/dL (6-20); C Reactive Protein 0.5 mg/L (0.0-4.9); Calcium 9.1 mg/dL (8.5-10.5); Carbon Dioxide 33 mmol/L (22-29); Chloride 94 mmol/L (98-107); Globulin 2.5 g/dL (1.3-4.6); Glomerular Filtration Rate 102.3 mL/min (90-130); Glucose 172 mg/dL (65-115); Magnesium 2.5 mg/dL (1.7-2.3); Phosphorus 4.7 mg/dL (2.5-4.5); Potassium 4.8 mmol/L (3.5-5.1); Sodium 137 mmol/L (136-145); Total Bilirubin 0.3 mg/dL (0.15-1.2); Total Protein 6.5 g/dL (6.6-8.7)
[2019-12-24 07:37] LABS: Procalcitonin 0.05 ng/mL (0-0.5)
[2019-12-24] MEDS: budesonide 0.5 mg/2 mL Neb INHALATION ×2 (08:29→21:49)
[2019-12-24] MEDS: oseltamivir phosphate 75 mg Capsule PO (08:56)
[2019-12-24] MEDS: pantoprazole DR 40 mg Tablet PO (08:57)
[2019-12-24] MEDS: FUROsemide 20 mg Tablet PO (08:57)
--- NOTE | 2019-12-24 16:48 | PC.PHAR ---
PHARMACY TO DOSE VANCOMYCIN - 59 YO F 157.48CM 104 KG SCR 0.6 CRCL ~79.8. DOSE 1500 MG Q12H TROUGH 12/25 0500
--- NOTE | 2019-12-24 17:14 | PM.PN ---
Subjective Subjective: Interval history: This morning patient is doing well, remains afebrile, still has some shortness of breath with exertion, is 4 L at rest, 4 L with exertion, is concerned about going home too soon Vitals/I&O/Wt Last Vital Signs Temp 97.8 F 12/24/19 15:23 Pulse 93 12/24/19 15:23 Resp 16 12/24/19 15:23 BP 124/71 12/24/19 15:23 Pulse Ox 94 12/24/19 15:23 12/24/19 12/24/19 12/24/19 06:59 14:59 22:59 Intake Total 480 / 480 Output Total 2340 / 2340 Balance -2340 / -880 480 / 480 Weight last 48 hrs Weight 104.44 kg Weight 104.468 kg Weight 104.326 kg Physical Exam Const: COMMON NORMALS: no apparent distress and oriented x3 HENMT: COMMON NORMALS: normocephalic HEAD & SCALP: normocephalic Neck/C-Spine: COMMON NORMALS: no JVD Resp: COMMON NORMALS: normal respiratory effort, no retractions, no use of accessory muscles and clear to auscultation bilaterally AUSCULTATION: clear to auscultation bilaterally Cardio: COMMON NORMALS: no JVD, regular rate, regular rhythm, S1 normal heart sound and S2 normal heart sound RATE: regular rate RHYTHM: regular rhythm HEART SOUNDS: S1 normal and S2 normal GI: COMMON NORMALS: normal to inspection, nondistended, normoactive bowel sounds, soft to palpation, non-tender, no hepatosplenomegaly, no masses and no bruits PALPATION: Yes soft and Yes no hepatosplenomegaly Extremity: COMMON NORMALS: normal capillary refill, no clubbing, cyanosis or edema, no calf tenderness and no pedal edema Neuro: COMMON NORMALS: oriented x3 Psych: COMMON NORMALS: mental status grossly normal Data : 12/24/19 04:32 12/24/19 04:32 Micro: Microbiology 12/20/19 18:00 Gram Stain - Final Sputum - Expectorated Sputum Sputum Culture - Preliminary Methicillin Resis Staph Aureus A&P Assessment and plan (1) Influenza B: Patient has finished Tamiflu Status: Acute Code(s): J10.1 - Influenza due to other identified influenza virus with other respiratory manifestations (2) Pneumonia: Presumptive diagnosis on admission. She has some opacities in the bases right more than left. Not convinced is not atelectasis. Lack of fever, elevation in white count or other findings suggestive of an acute infection would go against this. BNP was only minimally elevated. Continue Rocephin and azithromycin, increased dose of Solu-Medrol to 40 every 8 hours Patient has had a slow clinical progress, likely secondary to pneumonia and influenza B and underlying COPD, her CT scan did show atelectasis of right middle lobe, I have spoken to Dr. Wong in the past about the case, he advised to increase dose of steroids and monitor clinical progress. -Patient's respiratory culture show MRSA, start vancomycin, patient is clinically doing well, remains afebrile, no significant leukocytosis, no significant pro-Willian elevation, no sick to the CRP elevation, chest x-ray shows no new infiltrates, her oxygen requirements have decreased -Likely discharge tomorrow on doxycycline, and a close follow-up with Dr. Wong as outpatient for consideration of bronchoscopy Status: Acute Qualifiers: Pneumonia type: due to unspecified organism Laterality: bilateral Lung location: lower lobe of lung Qualified Code(s): J18.9 - Pneumonia, unspecified organism Code(s): J18.9 - Pneumonia, unspecified organism (3) Left rib fracture: Subacute, I do think it is probably contributing some due to difficulties taking in deep breaths due to pain. She says that she can feel the fracture on the left when she tries to take in a deep breath. Status: Acute Qualifiers: Encounter type: subsequent encounter Rib fracture type: single rib Fracture type: closed Fracture healing: with routine healing Qualified Code(s): S22.32XD - Fracture of one rib, left side, subsequent encounter for fracture with routine healing Code(s): S22.32XA - Fracture of one rib, left side, initial encounter for closed fracture (4) COPD (chronic obstructive pulmonary disease): Acutely exacerbated related to above Continue steroids, nebulizer treatments, oxygen therapy, Tamiflu, Rocephin and azithromycin, incentive spirometer Status: Acute Qualifiers: COPD type: unspecified COPD Qualified Code(s): J44.9 - Chronic obstructive pulmonary disease, unspecified Code(s): J44.9 - Chronic obstructive pulmonary disease, unspecified (5) Anxiety: And as needed lorazepam, primarily to help her sleep Status: Acute Code(s): F41.9 - Anxiety disorder, unspecified (6) Hilar adenopathy: -Patient has peritracheal adenopathy, with near complete consolidation of right middle lobe -I discussed the case with Dr. Wong, who is agreeable to see the patient as outpatient for consideration of bronchoscopy given her underlying history of smoking and COPD and history of pulmonary nodules in the past Status: Acute Code(s): R59.0 - Localized enlarged lymph nodes (7) MRSA (methicillin resistant staphylococcus aureus) pneumonia: Status: Acute Code(s): J15.212 - Pneumonia due to Methicillin resistant Staphylococcus aureus Additional A&P Information Encourage ambulation, PT eval and treat Might benefit from referral to pulmonary rehab Chronically on oral PPI Lovenox for DVT prophylaxis Full code Attestations Medical Necessity Statement*: Patient requires continued hospitalization due to pneumonia, MRSA sputum cultures, requiring vancomycin Coding Level of Care Code Acute 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
[2019-12-25] VITALS (9 sets, daily range): BP systolic 115–160; BP diastolic 65–79; PULSE 82–104; RESP 18–20; TEMP 36.6–36.9; O2SAT 90–97
[2019-12-25] MEDS: ipratropium-albuterol 3 mL Neb INHALATION ×2 (02:35→08:50)
[2019-12-25 05:51] LABS: Basophils % 0.2 %; Eosinophils % 0.1 %; Hematocrit 41.5 % (37.0-47.0); Hemoglobin 12.3 g/dL (11.5-15.3); Lymphocytes # 1.6 10^3/uL (0.8-4.8); Lymphocytes % 7.9 %; Mean Corpuscular HGB Conc 29.6 g/dL (30.0-36.0); Mean Corpuscular Hemoglobin 27.3 pg (28.0-34.0); Mean Corpuscular Volume 92.2 fL (81-99); Mean Platelet Volume 9.3 fL (7.4-10.4); Monocytes # 1.9 10^3/uL (0.2-0.9); Monocytes % 9.6 %; Neutrophils % 80.6 %; Nucleated Red Blood Cells % 0 %; Platelet Count 460 10^3/cmm (130-400); Red Cell Distribution Width 14.6 % (12.1-15.1); White Blood Count 19.8 10^3/uL (4.0-10.0)
[2019-12-25 06:30] LABS: Procalcitonin 0.05 ng/mL (0-0.5)
[2019-12-25 07:12] LABS: Alanine Aminotransferase 44 U/L (0-33); Alkaline Phosphatase 71 IU/L (35-105); Anion Gap 19.4 (5-19); Blood Urea Nitrogen 19 mg/dL (6-20); C Reactive Protein 0.4 mg/L (0.0-4.9); Calcium 9.3 mg/dL (8.5-10.5); Carbon Dioxide 30 mmol/L (22-29); Chloride 92 mmol/L (98-107); Globulin 2.5 g/dL (1.3-4.6); Glomerular Filtration Rate 126.3 mL/min (90-130); Glucose 117 mg/dL (65-115); Magnesium 2.5 mg/dL (1.7-2.3); Phosphorus 4.7 mg/dL (2.5-4.5); Potassium 5.4 mmol/L (3.5-5.1); Sodium 136 mmol/L (136-145); Total Bilirubin 0.3 mg/dL (0.15-1.2); Total Protein 6.5 g/dL (6.6-8.7)
[2019-12-25 07:13] LABS: Aspartate Amino Transferase 21 U/L (0-32)
[2019-12-25] MEDS: FUROsemide 20 mg Tablet PO (08:16)
[2019-12-25] MEDS: pantoprazole DR 40 mg Tablet PO (08:16)
[2019-12-25] MEDS: budesonide 0.5 mg/2 mL Neb INHALATION (08:49)
--- NOTE | 2019-12-25 12:42 | PC.NURSE ---
DISCHARGE SUMMARY patient was given discharge instruction and all follow up appointments made. prescriptions sent to preferred pharmacy. Iv discontinued and vital signs stable. patient was taken home by family member. Verbalized understanding of discharge instructions.
--- NOTE | 2019-12-25 13:07 | P.DS_ITS ---
Discharge Providers Date of Admission: 12/18/19 23:17 Date of Discharge: December 25, 2019 Attending Provider at Admission: Tonya Zaldivar MD Attending Provider at Discharge: Domingo Quintanilla MD Primary Care Provider: Raul Clark MD Diagnoses at Discharge Discharge Diagnosis (1) Influenza B: Status: Acute (2) Pneumonia: Status: Acute Qualifiers: Pneumonia type: due to unspecified organism Laterality: bilateral Lung location: lower lobe of lung Qualified Code(s): J18.9 - Pneumonia, unspecified organism (3) Left rib fracture: Status: Acute Qualifiers: Encounter type: subsequent encounter Rib fracture type: single rib Fracture type: closed Fracture healing: with routine healing Qualified Code(s): S22.32XD - Fracture of one rib, left side, subsequent encounter for fracture with routine healing (4) COPD (chronic obstructive pulmonary disease): Status: Acute Problem details: Has oxygen 3.5 L at night and currently on daily steroids also Qualifiers: COPD type: unspecified COPD Qualified Code(s): J44.9 - Chronic obstructive pulmonary disease, unspecified (5) Anxiety: Status: Acute (6) Hilar adenopathy: Status: Acute (7) MRSA (methicillin resistant staphylococcus aureus) pneumonia: Status: Acute Reason for Visit Reason for Visit: Reason For Visit: COPD/SOB/WHEEZING Hospital Course Discharge Summary: This is a 59-year-old female with a past medical history of COPD 3 L oxygen dependent, chronic smoker, anxiety, obesity who presents to the emergency room due to cough and shortness of breath. Patient was admitted for acute respiratory failure secondary to influenza B and right bibasilar and right middle lobe pneumonia, patient had a slow clinical pr ogress, received broad-spectrum antibiotics, oxygen therapy, fluid therapy, nebulizer treatments, and Tamiflu. However however patient required up to 5 L oxygen, with desaturations with ambulation, which resulted in a slow clinical progress. Nonetheless patient did clinically improve, her shortness of breath significantly improved, required 4 L at rest and with exertion, was increasingly ambulating without symptomatology. 24 hours before discharge patient sputum culture came back positive for MRSA, she had no significant elevations in her white count, no fevers, no significant elevations of her procalcitonin, or CRP, no new infiltrate seen on her chest x-ray, however she was presumptively treated for a secondary bacterial pneumonia/MRSA pneumonia, received vancomycin as inpatient, did clinically well, was discharged on 7 remaining days of doxycycline. In addition she was discharged on 4 L at rest and 4 L with exertion. She was discharged with a steroid burst. She was advised to follow- up with her primary care physician in 1 week, she was advised to quit smoking. In addition during her admission patient's CT angiogram of her chest showed hilar adenopathy, peritracheal adenopathy, near complete consolidation of the right middle lobe, given her history of smoking, and her COPD history, I went over the scans with Dr. Wong, who graciously advised patient to follow-up with him in 1 month for consideration for bronchoscopy to rule out possible underlying malignancy. Physical Exam Const: COMMON NORMALS: no apparent distress and oriented x3 HENMT: COMMON NORMALS: normocephalic HEAD & SCALP: normocephalic Neck/C-Spine: COMMON NORMALS: no JVD Resp: COMMON NORMALS: normal respiratory effort, no retractions, no use of accessory muscles and clear to auscultation bilaterally AUSCULTATION: clear to auscultation bilaterally Cardio: COMMON NORMALS: no JVD, regular rate, regular rhythm, S1 normal heart sound and S2 normal heart sound RATE: regular rate RHYTHM: regular rhythm HEART SOUNDS: S1 normal and S2 normal GI: COMMON NORMALS: normal to inspection, nondistended, normoactive bowel sounds, soft to palpation, non-tender, no hepatosplenomegaly, no masses and no bruits PALPATION: Yes soft and Yes no hepatosplenomegaly Extremity: COMMON NORMALS: normal capillary refill, no clubbing, cyanosis or edema, no calf tenderness and no pedal edema Neuro: COMMON NORMALS: oriented x3 Psych: COMMON NORMALS: mental status grossly normal Discharge Data Data Completed and Pending: Completed Studies During Hospitalization Category Date Time Status CT chest wo con 7 1250 Routine Cat Scan 12/19/19 08:54 Completed XR chest 1V ced ble [id number] Routine Exams 12/23/19 08:47 Completed XR chest 2V* 7104 6 Stat Exams 12/18/19 18:53 Completed Pending at discharge Category Date Time Status Sputum Culture an d Gram Stain Stat Lab 12/20/19 18:00 Results Labs from last 24 hours 12/25/19 12/25/19 12/25/19 05:30 05:30 05:30 WBC 19.8 H RBC 4.50 Hgb 12.3 Hct 41.5 MCV 92.2 MCH 27.3 L MCHC 29.6 L RDW 14.6 Plt Count 460 H MPV 9.3 Neut % (Auto) 80.6 Lymph % (Auto) 7.9 Throckmorton % (Auto) 9.6 Eos % (Auto) 0.1 Baso % (Auto) 0.2 Neut # (Auto) 16.0 H Lymph # (Auto) 1.6 [place] # (Auto) 1.9 H Eos # (Auto) 0.0 Baso # (Auto) 0.0 Nucleated RBC % (a uto) 0 Nucleated RBCs # 0.0 Sodium 136 Potassium 5.4 H Chloride 92 L Carbon Dioxide 30 H Anion Gap 19.4 H BUN 19 Creatinine 0.5 GFR Calculation 126.3 Glucose 117 H Calcium 9.3 Phosphorus 4.7 H Magnesium 2.5 H Total Bilirubin 0.3 AST 21 ALT 44 H Alkaline Phosphata se 71 C-Reactive Protein 0.4 Total Protein 6.5 L Albumin 4.0 Globulin 2.5 Procalcitonin 0.05 Vitals: Last Vital Signs Temp 98.5 F 12/25/19 11:25 Pulse 100 12/25/19 11:25 Resp 20 H 12/25/19 11:25 BP 115/76 12/25/19 11:25 Pulse Ox 95 12/25/19 11:25 Discharge Plan Discharge Patient Disposition: Home, Self-Care Condition: Stable Prescriptions: New benzonatate 100 mg Capsule 200 mg PO TID PRN (Reason: Cough) 15 Days Qty: 30 RF: 0 prednisone 10 mg tablet See Rx Instructions .ROUTE .COMPLEX Qty: 53 RF: 0 doxycycline hyclate 100 mg capsule 100 mg PO BID 7 Days Qty: 14 RF: 0 Continued fluticasone propion-salmeterol [Wixela Inhub] 250-50 mcg/dose blister with device 1 inh INHALATION BID RF: 0 ipratropium-albuterol 0.5 mg-3 mg(2.5 mg base)/3 mL solution for nebulization 3 ml INHALATION QID PRN (Reason: Shortness Of Breath) RF: 0 albuterol sulfate 2.5 mg /3 mL (0.083 %) solution for nebulization 2.5 mg inhalation Q2H PRN (Reason: Shortness Of Breath) RF: 0 cyanocobalamin (vitamin B-12) 1,000 mcg/mL solution 1,000 mcg IM Q30D RF: 0 omeprazole 20 mg capsule,delayed release(DR/EC) 20 mg PO DAILY RF: 0 lorazepam 1 mg tablet See Rx Instructions .ROUTE .COMPLEX RF: 0 albuterol sulfate [ProAir HFA] 90 mcg/actuation HFA aerosol inhaler 2 puff INHALATION QID PRN (Reason: Shortness Of Breath) RF: 0 Spiriva Respimat 2.5 mcg/actuation mist 2 puff INHALATION DAILY RF: 0 guaifenesin [Mucinex] 600 mg tablet extended release 12hr 600 mg PO BID PRN (Reason: Congestion) RF: 0 Combivent Respimat 20-100 mcg/actuation mist 1 puff INHALATION QID PRN (Reason: UNKNOWN) RF: 0 hydrocodone-acetaminophen 5-325 mg tablet 1 tab PO Q8H PRN (Reason: rib fracture) Qty: 30 RF: 0 furosemide 20 mg Tablet 20 mg PO DAILY RF: 0 Held ibuprofen 200 mg Tablet 800 mg PO Q4H PRN (Reason: Pain) RF: 0 Hold Instructions: Resume on 01/22/20. Discontinued prednisone 5 mg tablet 5 - 10 mg PO DAILY RF: 0 Discharge Orders: Discharge Order (Routine); Ordered 12/25/19 Ordered By: Domingo Quintanilla Other Ambulatory Orders: DME: Oxygen (Order) Location: None Selected Ordered By: Domingo Quintanilla Referrals: Raul Clark MD [Primary Care Provider] - Markus Wong MD [Physician] - 01/23/20 9:30 am Ted Ewing APN [Family Provider] - 01/01/20 1:15 pm Discharge Diet: Advance as tolerated Discharge Activity: Resume usual activity Patient Instructions: Benzonatate (By mouth), Doxycycline (By mouth), Prednisone (By mouth), Influenza (DC), Pneumonia (DC) Activity Restrictions/Additional Instructions: -Please follow-up with primary care in 1 week -Please take antibiotics for the next 7 days -Please take steroids for the next 25 days -Please follow-up with Dr. Wong in 3 to 4 weeks for consideration for bronchoscopy -If worsening shortness of breath please come back to the emergency room Discharge Date/Time: 12/25/19 12:15 Discharge Attestations Time Spent in Discharge Care*: less than 30 min Quality Metrics Clinical Quality Measures During this hospital stay, did patient experience: None Coding Level of Care Code Acute [employer] Operator for [facility] Fwd Diagnoses Influenza B J10.1 Pneumonia J18.9 Pneumonia type: due to unspecified organism Laterality: bilateral Lung location: lower lobe of lung Left rib fracture S22.32XD Encounter type: subsequent encounter Rib fracture type: single rib Fracture type: closed Fracture healing: with routine healing COPD (chronic obstructive pulmonary disease) J44.9 COPD type: unspecified COPD Anxiety F41.9 Hilar adenopathy R59.0 MRSA (methicillin resistant staphylococcus aureus) pneumonia J15.212
== END 2019-12-25 12:15 | disposition home or self-care (01) | DRG 194 ==
LOC: ER 23:35 → MEDSURG 23:48
PROVIDERS: Admitting Provider Hospitalist; Emergency Provider Family Medicine; Family Provider Nurse Practitioner Family; PCP Orthopaedic Surgery; Visit Provider Family Medicine
DX: J18.9 Pneumonia, unspecified organism (principal); J44.1 Chronic obstructive pulmonary disease with (acute) exacerbation; Z68.41 Body mass index [BMI] 40.0-44.9, adult; J10.1 Influenza due to other identified influenza virus with other respiratory manifestations; F41.9 Anxiety disorder, unspecified; J15.212 Pneumonia due to Methicillin resistant Staphylococcus aureus; F17.210 Nicotine dependence, cigarettes, uncomplicated; E66.9 Obesity, unspecified; R59.0 Localized enlarged lymph nodes; J44.9 Chronic obstructive pulmonary disease, unspecified; S22.32XD Fracture of one rib, left side, subsequent encounter for fracture with routine healing; Z79.51 Long term (current) use of inhaled steroids
CPT/HCPCS: 12345; 36415; 71045; 71046; 71250; 80048; 80053; 83735; 83880; 84100; 84145; 85025; 86140; 86403; 87070; 87077; 87186; 87205; 87641; 87804; 94640; 94660; 94664; 96375; 97161; 99282; J0696; J1940; J1956; J2920; J3370; J7050; J7512; J7626; Q0144

== ENCOUNTER 2019-12-18 18:00 | Emergency (ER) | payer MEDICAID, SELFPAY | END 2019-12-18 23:55 | disposition admitted as inpatient to this hospital (09) | LOC: ER 01-21 10:07 | PROVIDERS: Emergency Provider Family Medicine; Family Provider Nurse Practitioner Family; PCP Orthopaedic Surgery | DX: J44.9 Chronic obstructive pulmonary disease, unspecified (principal); J11.1 Influenza due to unidentified influenza virus with other respiratory manifestations; J18.9 Pneumonia, unspecified organism; J96.10 Chronic respiratory failure, unspecified whether with hypoxia or hypercapnia; S22.32XA Fracture of one rib, left side, initial encounter for closed fracture; X58.XXXA Exposure to other specified factors, initial encounter; F17.200 Nicotine dependence, unspecified, uncomplicated; Z99.81 Dependence on supplemental oxygen | CPT/HCPCS: 36415; 71046; 80053; 83880; 85025; 87804; 94640; 96365; 99282; 99285; J0696 ==

== ENCOUNTER 2019-12-18 18:00 | Emergency (ER) | payer MEDICAID, SELFPAY | END 2019-12-18 23:55 | disposition admitted as inpatient to this hospital (09) | LOC: ER 01-18 08:04 | PROVIDERS: Emergency Provider Family Medicine; Family Provider Nurse Practitioner Family; PCP Orthopaedic Surgery | DX: Z76.89 Persons encountering health services in other specified circumstances (principal) ==

== ENCOUNTER 2020-11-10 13:49 | Outpatient (CLI) | payer MEDICAID, SELFPAY ==
--- NOTE | 2020-11-10 13:53 | MM_ITS ---
WS: [id number] BILATERAL SCREENING DIGITAL MAMMOGRAM WITH CAD HISTORY: SCREENING COMPARISON: None available. Bilateral CC and MLO views submitted. Computer aided detection analyzed. Breast composition: The breasts are almost entirely fatty. No suspicious masses, microcalcifications or architectural distortion. Benign calcifications in each breast. MM/[place] [id number] IMPRESSION: BI-RADS: 2-Benign FOLLOW UP: 1 Year Follow-up
== END 2020-11-10 13:50 | disposition home or self-care (01) ==
LOC: RADSHAW 13:52
PROVIDERS: Family Provider Nurse Practitioner Family; PCP Nurse Practitioner Family; Visit Provider Nurse Practitioner Family
DX: Z12.31 Encounter for screening mammogram for malignant neoplasm of breast (principal)
CPT/HCPCS: 77067

== ENCOUNTER 2021-02-24 13:21 | Outpatient (CLI) | payer MEDICAID, SELFPAY ==
--- NOTE | 2021-02-24 13:27 | XRR_ITS ---
PROCEDURE INFORMATION: Exam: XR Chest Exam date and time: 02/24/2021 1:37 PM Age: 61 years old Clinical indication: Condition or disease; Lung condition and disease; Copd; Complications not specified; Cough; Additional info: Copd, cough, muscle spasms in back TECHNIQUE: Imaging protocol: XR of the chest. Views: 2 views. COMPARISON: CR XR chest 1V portable [id number] 12/23/2019 11:32 AM FINDINGS: Lungs: Unremarkable. No consolidation. Pleural spaces: Unremarkable. No pleural effusion. No pneumothorax. Heart/Mediastinum: Unremarkable. No cardiomegaly. Bones/joints: Unremarkable. XR/XR chest 2V* [id number] IMPRESSION: 1. No acute findings. 2. No changes from comparison.
== END 2021-02-24 13:22 | disposition home or self-care (01) ==
LOC: RAD 13:23
PROVIDERS: PCP Nurse Practitioner Family; Visit Provider Nurse Practitioner Family
DX: R07.81 Pleurodynia (principal); J44.9 Chronic obstructive pulmonary disease, unspecified; R05 Cough
CPT/HCPCS: 71046

== ENCOUNTER → 2022-03-26 10:48 | Outpatient (BNVA) | payer MEDICAID, SELFPAY | PROVIDERS: PCP Nurse Practitioner Family; Visit Provider Internal Medicine Critical Care Medicine | DX: J44.9 Chronic obstructive pulmonary disease, unspecified (principal); J96.90 Respiratory failure, unspecified, unspecified whether with hypoxia or hypercapnia; M19.90 Unspecified osteoarthritis, unspecified site; Z87.891 Personal history of nicotine dependence; K21.9 Gastro-esophageal reflux disease without esophagitis | CPT/HCPCS: 99214 ==

== ENCOUNTER 2022-05-04 11:01 | Outpatient (CLI) | payer MEDICAID, SELFPAY ==
--- NOTE | 2022-05-04 11:06 | MM_ITS ---
WS: [id number] DIAGNOSTIC BILATERAL DIGITAL BREAST TOMOSYNTHESIS MAMMOGRAPHY WITH CAD LEFT breast ultrasound, limited. HISTORY: MASS OF LOWER INNER QUADRANT LEFT BREAST COMPARISON: 11/10/2020 TECHNIQUE: Bilateral craniocaudad, mediolateral oblique, and mediolateral views are submitted with to mosynthesis and SM. LEFT CC spot. Computer aided detection utilized. Breast composition: There are scattered areas of fibroglandular density. No suspicious masses are not ed along the inferior medial LEFT breast in the area the palpable abnormality. Benign calcifications in each breast. No skin thickening or architectural distortion. LEFT breast ultrasound, limited. Ultrasound is directed to the LEFT breast as indicated by the patient in the palpable areas. Ultrasou nd directed to the 12:00, 3:00, 6:00 and 9:00. No abnormalities are identified. No soft tissue mass o r increased vascularity. No distortion or shadowing. MM/[place] [id number] IMPRESSION: BI-RADS: 2-Benign FOLLOW UP: 1 Year Follow-up
== END 2022-05-04 11:02 | disposition home or self-care (01) ==
LOC: RAD 11:02
PROVIDERS: PCP Nurse Practitioner Family; Visit Provider Nurse Practitioner Family
DX: N63.24 Unspecified lump in the left breast, lower inner quadrant (principal)
CPT/HCPCS: 76642; 77062

== ENCOUNTER 2022-05-05 07:02 | Outpatient (CLI) | payer MEDICAID, SELFPAY ==
--- NOTE | 2022-05-05 12:35 | PFTS_ITS ---
Date of Study:05/05/22 Date of Dictation: 05/08/2022 MECHANICS: Postbronchodilator forced vital capacity (FVC) is reduced. Postbronchodilator forced expiratory volume in one second (FEV1) is moderately reduced. FEV1/FVC is reduced. There is no significant postbronchodilator response FLOW VOLUME LOOP: Sloping of expiratory limb suggestive of airway obstruction . LUNG VOLUMES: Total lung capacity (TLC) is normal. Residual volume (RV) is increased suggestive of mild air trapping. DIFFUSING CAPACITY FOR CARBON MONOXIDE: Mildly reduced . INTERPRETATION: The spirometry showed moderate obstructive ventilatory defect. There is no significant postbronchodilator response. Lung volumes suggestive of mild air trapping. There is mild gas transfer defect. Clinical correlation recommended. [facility]
== END 2022-05-05 07:03 | disposition home or self-care (01) ==
LOC: RT 07:03
PROVIDERS: PCP Nurse Practitioner Family; Visit Provider Internal Medicine Critical Care Medicine
DX: J44.9 Chronic obstructive pulmonary disease, unspecified (principal)
CPT/HCPCS: 94060; 94726; 94729; J7614

== ENCOUNTER → 2022-05-07 09:38 | Outpatient (BNVA) | payer MEDICAID, SELFPAY | PROVIDERS: PCP Nurse Practitioner Family; Visit Provider Internal Medicine Critical Care Medicine | DX: J96.90 Respiratory failure, unspecified, unspecified whether with hypoxia or hypercapnia (principal); M19.90 Unspecified osteoarthritis, unspecified site; Z87.891 Personal history of nicotine dependence; J42 Unspecified chronic bronchitis; E66.9 Obesity, unspecified | CPT/HCPCS: 99214 ==

== ENCOUNTER 2022-05-18 09:24 | Outpatient (CLI) | payer MEDICAID, SELFPAY ==
--- NOTE | 2022-05-18 09:33 | CT_ITS ---
WS: [id number] LDCT LUNG CANCER SCREENING HISTORY: Lung cancer screening TECHNIQUE: Axial imaging performed from the apices to 1 cm below the costophrenic angles. Coronal and sagittal reformats are submitted with axial MIP series. All CT scans at [facility] use at least one of these dose optimization techniques: automated exposure control; mA and/or kV adjustment per patient size (includes targeted exams where dose is matched to clinical indication); or iterativ e reconstruction. DLP: 70.20 mGy.cm DIvol: Mean CTDIvol: 1.60 (mGy) COMPARISON: 12/19/2019, 12/17/2017, 09/13/2016 Diagnostic quality: Suboptimal. Secondary to motion and body habitus. Lung Nodules: Centrilobular emphysema. Bilateral lower lobe pulmonary nodules are reidentified. These have been described on prior examinations and for the most part stable. Progressive bronchial wall t hickening and soft tissue opacification at the RIGHT hilum and extending along the superior major fis sure. This is the area of the previously described bronchial wall thickening and increased soft tissu e with subsegmental atelectasis. The soft tissue opacification has significantly increased in size me asuring 4.1 x 2.0 cm. There is slight volume loss which has progressed since the prior study as indic ated by elevation of the RIGHT diaphragm. Heart: Mild cardiomegaly. Other findings: No definite adenopathy. Moderate calcification in the aorta. Scattered coronary arter y calcifications. Severe hepatic steatosis and probable enlargement. Prior cholecystectomy. CT/CT lung screening [id number] IMPRESSION: LUNG-RADS: 4B-Suspicious FOLLOW UP: Chest CT with or without contrast OTHER FINDINGS (S MODIFIER): None. 1. Increasing soft tissue at the RIGHT hilum extending along the superior ruba r fissure with partial atelectasis resulting in volume loss of the RIGHT lung. Similar findings were described on the prior CT of 12/19/2019. This study is sub optimal due to its low dose scanning technique. This study needs to be followed up with chest CT with IV contrast, PET/CT imaging and follow-up with bronchosc opy would also be very beneficial. This needs to be further evaluated for possi ble neoplasm.
== END 2022-05-18 09:25 | disposition home or self-care (01) ==
LOC: RAD 09:25
PROVIDERS: PCP Nurse Practitioner Family; Visit Provider Internal Medicine Critical Care Medicine
DX: Z12.2 Encounter for screening for malignant neoplasm of respiratory organs (principal); Z87.891 Personal history of nicotine dependence
CPT/HCPCS: 71271

== ENCOUNTER → 2022-05-20 08:33 | Outpatient (BNVA) | payer MEDICAID, SELFPAY | PROVIDERS: PCP Nurse Practitioner Family; Referring Provider Internal Medicine Critical Care Medicine; Visit Provider Internal Medicine Rheumatology | DX: J44.9 Chronic obstructive pulmonary disease, unspecified (principal); E66.01 Morbid (severe) obesity due to excess calories; Z68.41 Body mass index [BMI] 40.0-44.9, adult; Z71.85 Encounter for immunization safety counseling; M19.90 Unspecified osteoarthritis, unspecified site; Z79.899 Other long term (current) drug therapy; Z11.59 Encounter for screening for other viral diseases | CPT/HCPCS: 72100; 73130; 73630; 80076; 82306; 82565; 85025; 85651; 86038; 86140; 86200; 86431; 86704; 86803; 87340; 99204 ==

== ENCOUNTER → 2022-09-06 14:27 | Outpatient (BNVA) | payer MEDICAID, SELFPAY | PROVIDERS: PCP Nurse Practitioner Family; Visit Provider Internal Medicine Rheumatology | DX: M25.50 Pain in unspecified joint (principal); Z79.899 Other long term (current) drug therapy; Z71.85 Encounter for immunization safety counseling; J44.9 Chronic obstructive pulmonary disease, unspecified; Z87.891 Personal history of nicotine dependence; E66.01 Morbid (severe) obesity due to excess calories; Z68.41 Body mass index [BMI] 40.0-44.9, adult; J96.11 Chronic respiratory failure with hypoxia; Z79.52 Long term (current) use of systemic steroids | CPT/HCPCS: 99214 ==

== ENCOUNTER → 2022-11-08 12:40 | Outpatient (BNVA) | payer MEDICAID, SELFPAY | PROVIDERS: PCP Nurse Practitioner Family; Visit Provider Internal Medicine Pulmonary Disease | DX: J42 Unspecified chronic bronchitis (principal); R91.8 Other nonspecific abnormal finding of lung field; M19.90 Unspecified osteoarthritis, unspecified site; Z87.891 Personal history of nicotine dependence; J96.11 Chronic respiratory failure with hypoxia; J96.12 Chronic respiratory failure with hypercapnia; Z79.52 Long term (current) use of systemic steroids; R63.5 Abnormal weight gain; Z68.41 Body mass index [BMI] 40.0-44.9, adult | CPT/HCPCS: 99214 ==

== ENCOUNTER 2022-11-19 08:09 | Outpatient (CLI) | payer MEDICAID, SELFPAY ==
--- NOTE | 2022-11-19 08:00 | CT_ITS ---
WS: [id number] CT CHEST TECHNIQUE: Noncontrast CT of the chest with coronal and sagittal reformatted images. CLINICAL INFORMATION: check for resolution of PET positive opacification COMPARISON: PET/CT June 12, [address] chest May 18, 2022 DLP: 641.[address] scans at [facility] use at least one of these dose optimization techniques: automated e xposure control; mA and/or kV adjustment per patient size (includes targeted exams where dose is matc hed to clinical indication); or iterative reconstruction. FINDINGS: Previously described FDG avid area of soft tissue consolidation at the RIGHT hilum extending along the major fissure with atelectasis is persistent. Volume loss RIGHT upper lobe. Previous PET CT was s uggestive of neoplasm. Recommend bronchoscopy and further evaluation if this has not been performed p reviously. Today this area measures approximately 3.6 x 2.4 cm unchanged. Additional previously described FDG avid area of wedge-shaped consolidation in the RIGHT upper lobe a nteriorly has improved since the prior PET/CT with improved aeration. This was likely infectious or i nflammatory. Noncalcified nodule RIGHT lower lobe measuring 6 mm unchanged since the prior CT May 18, 2022. Addit ional noncalcified nodule RIGHT lower lobe subpleural measuring 5 mm. This is also stable. Recommend 6 month follow-up of these nodules. A few additional subpleural nodules LEFT lower lobe subcentimeter in size better visualized today. So me of these may be inflammatory. Recommend 6 month follow-up. Normal caliber thoracic aorta. Aortic calcification. Coronary calcification. No mediastinal lymphaden opathy. Tiny RIGHT adrenal adenoma. LEFT adrenal gland is normal. Partially visualized hepatomegaly. Cholecys tectomy clips. Fatty atrophy of the pancreas partially visualized. Normal GE junction. Chronic LEFT r ib fractures with callus formation. No axillary lymphadenopathy. Subsegmental atelectasis in the ling etta. CT/CT chest wo con [id number] IMPRESSION: 1. Previously described wedge-shaped consolidation in the RIGHT upper lobe ant eriorly with FDG activity has improved compared to the prior PET/CT with improv ed aeration and residual subsegmental atelectasis. This was likely infectious o r inflammatory. 2. However the region of consolidation in the posterior RIGHT upper lobe along the RIGHT hilum is persistent and unchanged. Consider bronchoscopy further magnolia luation if this has not been performed. Neoplasm is not excluded. 3. Noncalcified nodule RIGHT lower lobe measuring 6 mm unchanged since the francisca or CT May 18, 2022. Additional noncalcified nodule RIGHT lower lobe subpleural measuring 5 mm. This is also stable. Recommend 6 month follow-up of these nodu les. 4. A few additional subpleural nodules LEFT lower lobe subcentimeter in size b deneen visualized today. Some of these may be inflammatory. Recommend 6 month fo llow-up. 5. No other remarkable changes compared to previous.
== END 2022-11-19 08:10 | disposition home or self-care (01) ==
LOC: RAD 08:09
PROVIDERS: PCP Nurse Practitioner Family; Visit Provider Internal Medicine Pulmonary Disease
DX: R91.8 Other nonspecific abnormal finding of lung field (principal)
CPT/HCPCS: 71250

== ENCOUNTER 2023-02-09 10:52 | Outpatient (CLI) | payer MEDICAID, SELFPAY ==
--- NOTE | 2023-02-09 11:00 | CT_ITS ---
WS: [id number] CT chest wo con [id number] HISTORY: 3 month f/u TECHNIQUE: Axial imaging performed through the thorax. Coronal and sagittal reformats are submitted. All CT scans at [facility] use at least one of these dose optimization techniques: automated exposure control; mA and/or kV adjustment per patient size (includes targeted exams where dose is mat ched to clinical indication); or iterative reconstruction. CONTRAST: Omnipaque 350; 100 mL IV. DLP: 587.35 mGy.cm COMPARISON: Chest CT 11/19/2022, 05/18/2022 and PET scan 03/12/2022 Lungs and central airway: Continued slow improvement in the RIGHT upper lobe opacifications. There is still an area of dense consolidation extending along the RIGHT minor and superior RIGHT major fissur e. Largest component of opacification measures 3.2 x 1.8 cm. There is mild central bronchial wall thi ckening. Bronchiectasis extending into the RIGHT middle lobe. No change in the 6 mm RIGHT nodule whic h may be along the fissure. Numerous nodules in the periphery of the lower lung chavez bilaterally. T hese nodules were negative on the prior recent PET/CT. Pleura: Normal. No pleural effusion. Heart and pericardium: Normal size heart with no pericardial effusion. Mild lipomatous changes along the intra-atrial septum. Mediastinum and darien: No mediastinum or hilar adenopathy. Vessels: Mild atherosclerosis aorta. No aneurysm. Normal size pulmonary artery. Coronary artery ather osclerotic disease. Chest wall and lower neck: No soft tissue masses. Upper abdomen: Mild hepatic steatosis. Prior cholecystectomy. Mild nodularity RIGHT adrenal gland. 7 mm nodule RIGHT adrenal gland. Osseous structures: Remote healed rib fractures in the posterior LEFT thorax. CT/CT chest wo con [id number] IMPRESSION: 1. Very minimal slow improvement in the consolidation and pleural thickening c entered at the RIGHT hilum. Pleural thickening extends along the minor and supe rior major fissures. Recommend continued close follow-up by imaging. Chest CT i n 3 months recommended. 2. Previously described additional subcentimeter pulmonary nodules are stable. 3. Bronchiectasis RIGHT upper lobe.
== END 2023-02-09 10:53 | disposition home or self-care (01) ==
LOC: RAD 10:54
PROVIDERS: PCP Nurse Practitioner Family; Visit Provider Internal Medicine Pulmonary Disease
DX: R91.8 Other nonspecific abnormal finding of lung field (principal); J47.9 Bronchiectasis, uncomplicated
CPT/HCPCS: 71250

== ENCOUNTER 2023-05-27 12:58 | Outpatient (CLI) | payer MEDICAID, SELFPAY ==
--- NOTE | 2023-05-27 13:30 | CT_ITS ---
WS: [id number] CT chest wo con [id number] HISTORY: 3 month f/u TECHNIQUE: Axial imaging performed through the thorax. Coronal and sagittal reformats are submitted. All CT scans at [facility] use at least one of these dose optimization techniques: automated exposure control; mA and/or kV adjustment per patient size (includes targeted exams where dose is mat ched to clinical indication); or iterative reconstruction. CONTRAST: No DLP: 576.69 mGy.cm COMPARISON: 02/09/2023, 11/19/2022 Lungs and central airway: Hyperinflated lungs. Reidentified, contiguous with the RIGHT hilum is the s oft tissue mass extending along the major and minor fissures. Largest component along the superior po rtion of the major fissure measuring 3.5 x 1.8 cm. No significant improvement. There is a additional bronchiectasis centrally, greatest on the RIGHT. Numerous bilateral, subcentimeter lower lobe pulmona ry nodules are reidentified. Pleura: No pleural effusion. Heart and pericardium: Normal size heart. Moderate coronary artery calcification. Mediastinum and darien: Intra-atrial lipomatous changes. No mediastinal or hilar adenopathy or interval change. Vessels: Mild atherosclerosis aorta. No aneurysm. Normal size pulmonary artery. Chest wall and lower neck: No soft tissue masses. Upper abdomen: Hepatic steatosis. Prior cholecystectomy. Osseous structures: Mild degenerative changes throughout the thoracic spine. Several contiguous rib f ractures which are healed in the posterior LEFT thorax. CT/CT chest wo con [id number] IMPRESSION: 1. No significant change in the consolidation beginning at the RIGHT hilum ext ending along the fissures. Soft tissue mass measures 3.5 x 1.8 cm. May be chron ic atelectasis. Recommend continued follow-up. Bronchoscopy has not been perfor med this would be beneficial to evaluate the central hilar structures. Next claudia e no adenopathy identified. 2. Atherosclerosis aorta. 3. Patient has numerous subcentimeter bilateral lower lobe pulmonary nodules w ithout progression 4. Prior cholecystectomy.
== END 2023-05-27 12:59 | disposition home or self-care (01) ==
PROVIDERS: PCP Nurse Practitioner Family; Visit Provider Internal Medicine Pulmonary Disease
DX: R91.8 Other nonspecific abnormal finding of lung field (principal)
CPT/HCPCS: 71250

== ENCOUNTER 2023-08-23 12:00 | Outpatient (CLI) | payer MEDICAID, SELFPAY ==
--- NOTE | 2023-08-23 12:00 | PETR_ITS ---
PROCEDURE INFORMATION: Exam: PET/CT Skull Base to Mid-thigh Exam date and time: 08/23/2023 1:03 PM Age: 63 years old Clinical indication: Abnormal findings; Pet 06/12/22; Additional info: R91.8 - other nonspecific abnormal finding of lung field LABS AND CLINICAL REPORTS: Glucose: 100 mg/dl Treatment strategy for malignancy (PET staging): Restaging (PS) TECHNIQUE: Imaging protocol: Following at least four-hour fasting and following the injection of radiopharmaceutical, low dose CT images were obtained. Then, PET images were obtained. Attenuation corrected images were constructed using the CT scan. Fused images of PET and CT were reviewed. The standardized uptake values (SUV) reported below are maximum values within a region of interest, expressed in gm/ml. Exam includes orbital meatal line to mid-thigh. Radiopharmaceutical: 11.7 mCi F-18 FDG (Fluorodeoxyglucose), IV. Time of imaging post radiopharmaceutical administration: 1 hour Injection site: site COMPARISON: 1. CT chest 05/27/2023. 2. CT chest 02/09/2023. 3. CT chest 11/19/2022. 4. PET/CT 06/12/2022. FINDINGS: Limitations: Large body habitus causes unavoidable image degradation. Brain: Visualized brain has normal physiologic uptake. Pharynx: No abnormal uptake. Larynx: No abnormal uptake. Lungs, pleura and trachea: Atelectasis in the right middle lobe is new since the last PET/CT 14 months ago. The right middle lobe is not FDG avid. Its maximum SUV is only 2.0. Wedge-shaped areas of consolidation in the right upper lobe extends anteriorly along the minor fissure and posteriorly along the major fissure. They are unchanged from comparison CTs. They are not FDG avid. SUV max is only 2.2. They are consistent with chronic atelectasis and/or scarring. In the posterior basal segment of the left lower lobe, an 0.8 cm pulmonary nodule is not FDG avid (image 95). Its maximum SUV is only 1.0. Because it is unchanged compared to the PET/CT on 06/12/2022, it is benign. Discoid atelectasis/scarring at the inferior aspect of the lingula of the left upper lobe is unchanged. Its maximum SUV is only 1.0. Mild centrilobular emphysema. Heart: Mild cardiomegaly. No abnormal uptake. Mediastinal space: No abnormal uptake. Liver: No abnormal uptake. Gallbladder and bile ducts: Cholecystectomy. Pancreas: No abnormal uptake. Spleen: No abnormal uptake. Adrenal glands: No abnormal uptake. Kidneys and ureters: Normal physiologic uptake. Stomach and bowel: No abnormal uptake. Vasculature: No abnormal uptake. Lymph nodes: No enlarged or FDG avid lymph nodes. Bones/joints: No metabolically active areas. Soft tissues: No metabolically active areas. [facility] SUB[facility] [id number] IMPRESSION: 1. No abnormal FDG uptake. No evidence of metabolically active neoplasia or infection. 2. Atelectasis in the right middle lobe is new since the CT chest 05/27/2023. It is not FDG avid. 3. Two wedge-shaped areas of consolidation in the inferior aspect of the right upper lobe extends anteriorly along the minor fissure and posteriorly along the major fissure. They are unchanged from comparison CTs. They are not FDG avid. SUV max is only 2.2. They are consistent with chronic atelectasis and/or scarring. 4. Mild cardiomegaly. 5. In the posterior basal segment of the left lower lobe, a stable 0.8 cm pulmonary nodule is not FDG avid. It is benign. 6. Discoid atelectasis/scarring at the inferior aspect of the lingula of the left upper lobe is unchanged. Its maximum SUV is only 1.0.
== END 2023-08-23 12:01 | disposition home or self-care (01) ==
LOC: RAD 08-24 08:35
PROVIDERS: PCP Nurse Practitioner Family; Visit Provider Internal Medicine Pulmonary Disease
DX: R91.8 Other nonspecific abnormal finding of lung field (principal); J98.11 Atelectasis; I51.7 Cardiomegaly
CPT/HCPCS: 78815; A9552

== ENCOUNTER 2023-09-07 10:30 | Outpatient (CLI) | payer OTHER, SELFPAY ==
[2023-09-07 10:54] VITALS: PULSE 91; RESP 20; O2SAT 92
[2023-09-07] MEDS: albuterol 2.5 mg/3 mL Neb INHALATION (10:54)
[2023-09-07 10:58] VITALS: PULSE 89
== END 2023-09-07 10:31 | disposition home or self-care (01) ==
PROVIDERS: PCP Nurse Practitioner Family; Visit Provider Dermatology
DX: Z02.71 Encounter for disability determination (principal); J44.9 Chronic obstructive pulmonary disease, unspecified
CPT/HCPCS: 94060; J7613

== ENCOUNTER 2023-12-28 10:09 | Outpatient (CLI) | payer MEDICAID, SELFPAY ==
--- NOTE | 2023-12-28 10:15 | MM_ITS ---
WS: [id number] BILATERAL SCREENING DIGITAL TOMOSYNTHESIS MAMMOGRAM WITH CAD HISTORY: SCREENING COMPARISON: 05/04/2022, 11/10/2020 Bilateral CC and MLO views with tomosynthesis and synthetic mammography submitted. Computer aided det ection analyzed. Breast composition: There are scattered areas of fibroglandular density. No suspicious masses, microc alcifications or architectural distortion. Benign bilateral breast calcifications and arterial calcif ications. IMPRESSION: MM/[place] [id number] BI-RADS: 2-Benign FOLLOW UP: 1 Year Follow-up
== END 2023-12-28 10:10 | disposition home or self-care (01) ==
LOC: RAD 10:10
PROVIDERS: PCP Nurse Practitioner Family; Visit Provider Nurse Practitioner Family
DX: Z12.31 Encounter for screening mammogram for malignant neoplasm of breast (principal)
CPT/HCPCS: 77063; 77067

== ENCOUNTER 2024-05-03 18:52 | Emergency (ER) | payer MEDICAID, SELFPAY ==
[2024-05-03 18:52] VITALS: BP 194/102; PULSE 72; RESP 16; TEMP 36.3; O2SAT 93; BMI 36.6
--- NOTE | 2024-05-03 19:01 | ED_ITS ---
HPI - Epistaxis 2 General: Chief complaint: Epistaxis Stated complaint: nose bleed Time Seen by Provider: 05/03/24 19:00 History of Present Illness: 64-year-old female who presents to the e mergency room with a nosebleed that has been intermittently for the last couple of days. She is not on any blood thinners. EMS reports her blood pressure was pretty high. No cirrhosis. She says she keeps blowing clots out of her nose. Review of Systems 2 Narrative: Constitutional symptoms: Negative except as documented in HPI. Skin symptoms: Negative except as documented in HPI. Eye symptoms: Negative except as documented in HPI. ENMT symptoms: Negative except as documented in HPI. Respiratory symptoms: Negative except as documented in HPI. Cardiovascular symptoms: Negative except as documented in HPI. Gastrointestinal symptoms: Negative except as documented in HPI. Genitourinary symptoms: Negative except as documented in HPI. Musculoskeletal symptoms: Negative except as documented in HPI. Neurologic symptoms: Negative except as documented in HPI. Psychiatric symptoms: Negative except as documented in HPI. Endocrine symptoms: Negative except as documented in HPI. PFSH ED 2 PFSH: Medical History Polyarthralgia Chronic steroid use Immunization counseling High risk medication use Inflammatory arthritis GERD (gastroesophageal reflux disease) Anxiety COPD (chronic obstructive pulmonary disease) Has oxygen 3.5 L at night and currently on daily steroids also Surgical History History of cholecystectomy History of tubal ligation History of Family History Sister , Age 50 Cancer Breast; rare kind per pt Mother , Age 50 Cancer Kidney Social History Smoking and tobacco/nicotine status: unknown if used tobacco/nicotine Quit status (tobacco/nicotine): has quit using Year quit tobacco: 2020 Former quit date comment: 0.5 ppd X 48 years Second hand smoke exposure: No Alcohol intake: never Substance/Drug Use: never Lives independently: Yes Household members: significant other Current occupational status: disabled Do you think of yourself as: Straight/Heterosexual Current gender identity: Female Physical Exam 2 Narrative: EXAM NARRATIVE: General: Alert, no acute distress. Skin: warm and dry Head: Normocephalic Neck: Trachea midline Eye: Extraocular movements are intact. Ears, nose, mouth and throat: Oral mucosa moist Respiratory: Respirations are non-labored Musculoskeletal: Normal ROM Neurological: Alert and oriented, No focal neurological deficit observed. Psychiatric: Cooperative, patient is quite anxious and agitated. She keeps coughing and spitting out blood and blowing her nose. Course 2 Vital Signs: Vital signs: Vital Signs Temperature 97.4 F L 05/03/24 18:52 Pulse Rate 88 05/03/24 20:47 Respiratory Rate 18 05/03/24 19:25 Blood Pressure 110/58 05/03/24 20:47 Pulse Oximetry 95 05/03/24 20:47 Oxygen Delivery Me thod Room Air 05/03/24 19:25 MDM - Epistaxis Medical Decision Making Medical decision making: Differential diagnosis including but not limited to and based on the above HPI, review of systems and physical exam: Patient has epistaxis. She is quite hypertensive. Basic lab work, CBC BMP ordered. Coags. Orders placed to evaluate differential diagnosis based on the above differential, HPI and physical exam Lab Review: Laboratory results were reviewed and interpreted by myself the emergency room physician. Lab work is unremarkable. Mild leukocytosis. No anemia. No renal failure. Coags are normal. I reviewed the patient's medical record. Reexamination: With lowering of blood pressure, holding pressure to her nose and encouraging her to leave the clot rather than continually blowing her nose we have achieved hemostasis. No increased work of breathing. No altered mental status. She seems way less anxious at this point. Blood pressure is gone from over 200 210 systolic. Assessment and plan: Epistaxis Accelerated hypertension ?20 mg IV hydralazine. ? Ox oxymetazoline intranasally. - Discharged home - Discussed findings and plan with patient. Answered any questions. - All laboratory values were reviewed and interpreted personally by myself, the ER physician - Evaluation and treatment of this problem were appropriate in the emergency setting Lab Data 05/03/24 19:07 05/03/24 19:07 Laboratory Results WBC 11.84 10^3/uL (3.29-11.43) H 05/03/24 19:07 RBC 4.35 10^6/uL (3.85-5.65) 05/03/24 19:07 Hgb 12.50 g/dL (11.27-16.99) 05/03/24 19:07 Hct 39.5 % (36-47) 05/03/24 19:07 MCV 90.8 fl (85-98) 05/03/24 19:07 MCH 28.7 pg (27-33) 05/03/24 19:07 MCHC 31.6 g/dL (30-55) 05/03/24 19:07 RDW 12.9 % (12.1-15.1) 05/03/24 19:07 Plt Count 364 10^3/cmm (157-399) 05/03/24 19:07 MPV 9.4 fL (7.4-10.4) 05/03/24 19:07 Neut % (Auto) 70.2 % 05/03/24 19:07 Lymph % (Auto) 18.7 % 05/03/24 19:07 [place] % (Auto) 7.9 % 05/03/24 19:07 Eos % (Auto) 2.3 % 05/03/24 19:07 Baso % (Auto) 0.3 % 05/03/24 19:07 Neut # (Auto) 8.31 10^3/uL (1.8-7.7) H 05/03/24 19:07 Lymph # (Auto) 2.2 10^3/uL (0.8-4.8) 05/03/24 19:07 [place] # (Auto) 0.9 10^3/uL (0.2-0.9) 05/03/24 19:07 Eos # (Auto) 0.3 10^3/uL (0.0-0.8) 05/03/24 19:07 Baso # (Auto) 0.0 10^3/uL (0.0-0.1) 05/03/24 19:07 Nucleated RBC % (auto) 0 % 05/03/24 19:07 Nucleated RBCs # 0.0 /100WBC 05/03/24 19:07 PT 12.60 SECONDS (12.1-14.9) 05/03/24 19:07 INR 0.91 (0.8-1.2) 05/03/24 19:07 APTT 27.7 SECONDS (23.9-36.7) 05/03/24 19:07 Sodium 139 mmol/L (136-145) 05/03/24 19:07 Potassium 3.8 mmol/L (3.5-5.1) 05/03/24 19:07 Chloride 104 mmol/L (98-107) 05/03/24 19:07 Carbon Dioxide 23 mmol/L (22-29) 05/03/24 19:07 Anion Gap 15.8 (5-19) 05/03/24 19:07 BUN 12 mg/dL (8-23) 05/03/24 19:07 Creatinine 0.6 mg/dL (0.5-0.9) 05/03/24 19:07 GFR Calculation 100.6 mL/min (90-130) 05/03/24 19:07 Glucose 106 mg/dL (65-115) 05/03/24 19:07 Calculated Osmolality 288 mOsm/kg (285-295) 05/03/24 19:07 Calcium 9.0 mg/dL (8.5-10.5) 05/03/24 19:07 No radiology studies performed this visit Discharge Plan Discharge Patient Disposition: Home Clinical Impression: Epistaxis, Accelerated hypertension Prescriptions: New clonidine HCl 0.1 mg tablet 0.1 mg PO Q8H PRN (Reason: hypertensive emergency) Qty: 20 0RF Rx Instructions: For Systolic >185 diastolic >100 No Action prednisone 10 mg tablet 5 mg PO DAILY Combivent Respimat 20-100 mcg/actuation mist 1 puff inhalation Q6H PRN metformin 500 mg tablet 500 mg PO DAILY fluticasone propion-salmeterol [Advair Diskus] 250-50 mcg/dose blister with device 1 inh inhalation BID tiotropium bromide [Spiriva with HandiHaler] 18 mcg capsule, w/inhalation device 1 cap inhalation DAILY 30 Days Qty: 60 5RF Rx Instructions: puncture 1 cap using device; one dose = 2 inhalations (DME) Acapella See Rx Instructions .Route .MEDSUPPLY Qty: 1 0RF Rx Instructions: As directed cholecalciferol (vitamin D3) 1,250 mcg (50,000 unit) capsule 50,000 unit PO Q7D Qty: 15 1RF ipratropium-albuterol 0.5 mg-3 mg(2.5 mg base)/3 mL solution for nebulization 3 ml INHALATION QID PRN (Reason: Shortness Of Breath) ibuprofen 200 mg Tablet 800 mg PO Q4H PRN (Reason: Pain) Hold Instructions: Resume on 01/22/20. omeprazole 20 mg capsule,delayed release(DR/EC) 20 mg PO DAILY albuterol sulfate [ProAir HFA] 90 mcg/actuation HFA aerosol inhaler 2 puff INHALATION QID PRN (Reason: Shortness Of Breath) furosemide 20 mg Tablet 20 mg PO DAILY Discharge Orders: Discharge ED (Routine); Ordered 05/03/24 Ordered By: Bella Alarcon Referrals: Jean,Kaylin, [employer] ATTENDANT [Primary Care Provider] - 1-3 days Discharge Diet: Usual diet Discharge Activity: Increase activity as tolerated Patient Instructions: Nosebleed (ED) Activity Restrictions/Additional Instructions: Thank you for choosing [facility] for your healthcare needs today. Please realize this is an emergency room and that we are providing you with a medical screening exam and this may not be complete and all inclusive of all the testing and or work up that you may need to determine your ailment or severity of your illness. You have been screened and evaluated and felt safe for discharge. Health conditions do change or evolve sometimes and as such it is important that you follow up with your Primary Doctor to be re checked, 3-5 days is a general good time frame for follow up. You are always welcome to return to the ED for re assessment if your symptoms are worsening or you have new concerns Coding Level of Care Code ED Biblical Languages Professor for Tana Wolf
[2024-05-03] MEDS: oxymetazoline 0.05% Nasal Spray 15 mL 2 SPRAY NOSTRIL-B (19:09)
[2024-05-03 19:19] LABS: Basophils % 0.3 %; Eosinophils # 0.3 10^3/uL (0.0-0.8); Eosinophils % 2.3 %; Hematocrit 39.5 % (36-47); Lymphocytes # 2.2 10^3/uL (0.8-4.8); Lymphocytes % 18.7 %; Mean Corpuscular HGB Conc 31.6 g/dL (30-55); Mean Corpuscular Hemoglobin 28.7 pg (27-33); Mean Corpuscular Volume 90.8 fl (85-98); Mean Platelet Volume 9.4 fL (7.4-10.4); Monocytes # 0.9 10^3/uL (0.2-0.9); Monocytes % 7.9 %; Neutrophils # 8.31 10^3/uL (1.8-7.7); Neutrophils % 70.2 %; Nucleated Red Blood Cells % 0 %; Platelet Count 364 10^3/cmm (157-399); Red Blood Count 4.35 10^6/uL (3.85-5.65); Red Cell Distribution Width 12.9 % (12.1-15.1); White Blood Count 11.84 10^3/uL (3.29-11.43)
[2024-05-03 19:25] VITALS: BP 212/107; PULSE 83; RESP 18; O2SAT 89
[2024-05-03 19:31] LABS: INR 0.91 (0.8-1.2)
[2024-05-03 19:33] LABS: Partial Thromboplastin Time 27.7 SECONDS (23.9-36.7)
[2024-05-03 19:37] LABS: Anion Gap 15.8 (5-19); Blood Urea Nitrogen 12 mg/dL (8-23); Carbon Dioxide 23 mmol/L (22-29); Chloride 104 mmol/L (98-107); Creatinine Clr Calc Pharmacy 99.2136; Glomerular Filtration Rate 100.6 mL/min (90-130); Glucose 106 mg/dL (65-115); Osmolality Calculated 288 mOsm/kg (285-295); Potassium 3.8 mmol/L (3.5-5.1); Sodium 139 mmol/L (136-145)
[2024-05-03] MEDS: hyDRALAzine 20 mg/mL INJ 1 mL IVP (19:40)
[2024-05-03 20:47] VITALS: BP 110/58; PULSE 88; O2SAT 95
[2024-05-03 21:38] VITALS: BP 110/58; PULSE 81; RESP 18; O2SAT 96
== END 2024-05-03 20:59 | disposition home or self-care (01) ==
PROVIDERS: Emergency Provider Emergency Medicine; PCP Nurse Practitioner Family
DX: R04.0 Epistaxis (principal); I10 Essential (primary) hypertension; Z87.891 Personal history of nicotine dependence; J44.9 Chronic obstructive pulmonary disease, unspecified
CPT/HCPCS: 36415; 80048; 85025; 85610; 85730; 96374; 99284; J0360